=== PATIENT | female | born 1945 | race Caucasian/White ===

== ENCOUNTER 2017-05-21 05:41 | Inpatient (IN) | payer MEDICARE, MEDICAID ==
[~2017-05-21] VITALS: Ht 157.5 cm; Wt 138.3 kg
[2017-05-21] VITALS (20 sets, daily range): BP systolic 91–179; BP diastolic 32–109; PULSE 52–77; RESP 16–33; O2SAT 90–100
[~2017-05-21 05:41] MED LIST: AMIO400T4 PO; Albuterol 2.5 mg/3 mL Inhalation Solution NEB ONE; Albuterol-Ipratropium 3 mL Inhalation Solution ONE; CEPH-512 PO; DIGO250T72 PO; FAMO20TA4 PO; FURO-128 PO; GABA-502 PO; HYDR200T5 PO; LEFL20TA18 PO; LISI-567 PO; LOVA20TA PO; METF500T4 PO; METO-369 PO; NYST1POW23 MC; ONDA8TAB10 PO; PRE20 PO; SULF1TAB7 PO; WARF2.5T82 PO; ZLP5T PO
[2017-05-21] MEDS ORDERED: Furosemide 10 mg/mL 10 mL Inj IVPUSH ONE ×2 (05:50→06:00)
--- NOTE | 2017-05-21 05:54 | ED.REPORT ---
HPI-Dyspnea / Wheezing Date of Service May 21, 2017 ED Provider: Wyatt Monique MD Patient is a 72 year old female with a hx of HTN, DM, PE, and Afib on Warfarin who presents to the ED via EMS complaining of SOB onset 0400 this morning. In the field the pt had a O2 sat of 50% which increased to the upper 90's with high flow O2. She had an albuterol treatment en route. Patient really is not able to provide any meaningful history because of her respiratory distress Per records, she is not on blood thinners. Nursing Notes Stated Complaint: RESPIRATORY DISTRESS Chief Complaint: Respiratory Distress Nursing Notes Reviewed: Yes Allergies: Coded Allergies: meperidine (Verified Allergy, Severe, Nausea,Vomiting, 05/21/17) swelling at administration site as well as nausea/vomiting morphine (Verified Adverse Reaction, Intermediate, Hallucinations, 05/21/17 ) MAKES HER FEEL "WIRED" Scheduled Amiodarone (Amiodarone) 400 Mg Tablet 400 MG PO TID Cephalexin (Keflex) 500 Mg Capsule 500 MG PO QID Digoxin (Digoxin) 250 Mcg Tablet 250 MCG PO DAILY Famotidine (Famotidine) 20 Mg Tablet 30 MG PO DAILY Furosemide (Lasix) 40 Mg Tablet 40 MG PO BID Gabapentin (Gabapentin) 300 Mg Capsule 600 MG PO TID Hydroxychloroquine Sulfate (Hydroxychloroquine Sulfate) 200 Mg Tablet 400 MG PO DAILY Lisinopril (Lisinopril) 20 Mg Tablet 20 MG PO BID Lovastatin (Lovastatin) 20 Mg Tablet 20 MG PO QPM Metformin (Metformin) 500 Mg Tablet 500 MG PO DAILYWM Metoprolol Succinate ER (Metoprolol Succinate ER) 50 Mg Tab.er.24h 50 MG PO BID Ondansetron ODT (Ondansetron ODT) 8 Mg Tab.rapdis 8 MG PO QID Prednisone (PredniSONE) 20 Mg Tablet 20 MG PO DAILY Sulfamethoxazole/Trimeth 800-160 mg (Bactrim DS) 1 Each Tablet 1 TABLET PO BID Warfarin Sodium (Warfarin Sodium) 2.5 Mg Tablet 2.5 MG PO STTS Scheduled PRN Zolpidem (Ambien) 5 Mg Tablet 5 MG PO HS PRN PRN For Insomnia Miscellaneous Medications Leflunomide (Leflunomide) 20 Mg Tablet 20 MG PO Nystatin (Nystatin) 1 Each Powder.ea. 1 EACH [facility] General Time Seen by : 05:54 Chief Complaint Shortness of breath Hx Obtained From: Patient, EMS Arrived By: Ambulance Sudden in Onset?: Yes Onset Occurred: 1 - 4 hours ago Symptom Duration: Since onset Past Medical History Past Medical History 1. Atrial fibrillation on Warfarin 2. Macrocytic anemia with history of GI bleed, severe bleed, secondary to ulcers and on warfarin. 3. Bullous pemphigoid with history left lower extremity ulcer-healed, [facility]. 4. Rheumatoid arthritis, on Enbrel, last dose 1 month ago (managed by Dr. Valencia but patient would like to be referred to teacher aide). 5. History of recurrent left lower extremity cellulitis. 6. Depression, situational, after her 3 years ago- but reports she has gone to Grief Support group and got a chihuaha (Kimberly) so does not need medication treatment. 7. Diabetes mellitus, type 2, with neuropathy. 8. Hyperlipidemia. 9. Hypertension. 10. Heart murmur secondary to aortic sclerosis (reports Echo done in January at [place] but unable to obtain report) 11. Suspected obstructive sleep apnea( scheduled at [facility]) 12. Morbid obesity with BMI 56.6. 13. Acute renal failure due to dehydration, ARB, and Bactrim 14. Sclerotic lesion of the left humerus (deferred to outpatient) 15. PE February 2014 16. Endometriosis 17. RA on enbrel Hospitalizations: [facility] from February 11 through February 23. She presented with rapid atrial fibrillation and bronchitis. During that hospitalization she was found to have a rectus hematoma with significant anemia (requiring 5 units of packed red cell transfusion), delirium, prerenal azotemia, hyperkalemia and also CO2 narcosis (thought due to obstructive sleep apnea). She was discharged to [facility] on digoxin for her atrial fibrillation. SVH from [facility] from March 06- for acute renal failure due to prescribed Bactrim DS on February 28, and was continued on her ARB, and dehydrated. She was found to be Digoxin toxic at 3.5. She was discharged home with followup with PCP on March 13. Reports: Diabetes mellitus, Hyperlipidemia, Hypertension Reports: Thyroid disease Past Surgical History 1. Hysterectomy 2. Bladder repair 3. Bilateral knee arthroscopy Reports: Knee replacement Family History noncontributory Smoking History Never Smoker Social History Alcohol Use: Denies alcohol use Drug Use: Denies drug use Review of Systems Unable to Obtain ROS Patient condition (shortness of breath ) Physical Exam Initial Vital Signs Vital Signs (First) Date Time Temp Pulse Resp B/P Pulse Ox O2 Delivery O2 Flow Rate FiO2 05/21/17 05:43 38.2 77 27 135/78 94 BiPAP 05/21/17 05:49 10 05/21/17 06:05 60 Initial VS: Reviewed, Vital signs abnormal Head / Eyes: Atraumatic, Normocephalic Abdomen / GI: Soft, Non-tender Skin: Warm, Dry Neurologic: Alert, Oriented, Nonfocal Alertness: Positive: Somnolent Appearance / Presentation: Positive: Obese Neck: Supple Resp Distress / Stridor: Positive: Resp distress severe Diffuse wheezing throughout On Bipap Responds yes and no to questions Cardiovascular: Heart rate NL Distant heart tones Lower Extremity / Pelvis / MS: No deformity Profound peripheral edema below the knees with chronic venous stasis changes Interpretation & Diagnostics ECHO on 03/11/14: EF of 75-80% No focal wall motion abnormalities No significant valvular disease Lab Results Interpretation Result Diagram: 05/21/17 0515 05/21/17 0737 Test 05/21/17 05:15 05/21/17 06:55 05/21/17 07:08 White Blood Count 25.1th/mm3 (3.8-10.1) Red Blood Count 4.63mil/mm3 (3.90-5.20) Hemoglobin 13.6g/dL (12.0-15.6) Hematocrit 43.9% (35.0-46.0) Mean Corpuscular Volume 94.8fL (81-100) Mean Corpuscular Hemoglobin 29.4pg (27.0-35.0) Mean Corpuscular Hemoglobin Concent 31.0% (32.0-37.0) Red Cell Distribution Width 13.8% (12.3-15.4) Platelet Count 323bil/L (150-400) Neutrophils (%) (Auto) 73.5% (40-74) Lymphocytes (%) (Auto) 17.6% (14-46) Monocytes (%) (Auto) 7.3% (4-12) Eosinophils (%) (Auto) 1.0% (0-5) Basophils (%) (Auto) 0.2% (0-3) Sodium Level 142mEq/L (134-144) Chloride Level 98mEq/L (97-108) Carbon Dioxide Level 25mmol/L (18-29) Blood Urea Nitrogen 56mg/dL (8-27) Creatinine 2.48mg/dL (0.57-1.00) Estimat Glomerular Filtration Rate 27mL/min (>59) Glucose Level 189mg/dL (60-99) Calcium Level 9.2mg/dL (8.5-10.1) Total Bilirubin 0.3mg/dL (0.0-1.2) Aspartate Amino Transf (AST/SGOT) 18U/L (0-50) Alanine Aminotransferase (ALT/SGPT) 19U/L (0-32) Alkaline Phosphatase 76U/L (25-165) Pro-B-Type Natriuretic Peptide 602.6pg/mL (0-301) Total Protein 7.6g/dL (6.4-8.4) Albumin 4.0g/dL (3.4-5.0) Procalcitonin 0.22ng/mL (0.00-0.08) Digoxin Level 0.3nG/mL (0.9-2.0) Urine Legionella pneumophilia Ag Negative (Negative) Urine Color Yellow (YELLOW) Urine Appearance Clear (CLEAR,HAZY) Urine pH 6.0 (5.0-8.0) Urine Specific [place] 1.013 (1.003-1.035) Urine Protein Negativemg/dL (NEG,TRACE) Urine Glucose (UA) Negativemg/dL (NEGATIVE) Urine Ketones Negativemg/dL (NEGATIVE) Urine Occult Blood Trace (NEGATIVE) Urine Nitrite Negative (NEGATIVE) Urine Bilirubin Negative (NEGATIVE) Urine Urobilinogen Normalmg/dL (NORMAL) Urine Leukocyte Esterase Negative (NEGATIVE) Urine RBC 0-2/hpf (0-2) Urine WBC 0-5/hpf (0-5) Urine Epithelial Cells Few/hpf (NONE-MOD) Urine Crystals None seen (NONE SEEN) Urine Bacteria Few/hpf (NONE-FEW) Urine Hyaline Casts None/lpf (NONE) Urine Granular Casts None seen (NONE SEEN) Urine Waxy Casts None seen (NONE SEEN) Urine Red Blood Cell Casts None seen (NONE SEEN) Urine White Blood Cell Casts None seen (NONE SEEN) Urine Mucus None seen (None Seen) Urine Trichomonas None seen (NONE SEEN) Urine Yeast None (NONE SEEN) Urine Culture Reflexed Not indicated ECG Interpretation ECG Interpretation: Sinus rate 75 Nonspecific intraventricular conduction delay Repol abnormality, severe global ischemia Time: 05:50 Interpreted by: ED physician ABG Interpretation ABG Interpretation: Arterial pH 7.214 pCO2 84 pO2 188.0 cHCO3- 33.7 cBase 4.7 Exam Performed by: [facility] Exam Interpreted by: ED physician ABG Interpretation: Arterial pH 7.286 pCO2 68 pO2 68.2 cHCO3- 31.5 cBase 3.6 Exam Performed by: [facility] Exam Interpreted by: ED physician X-Ray Chest Interpretation Chest Xray Interpretation: diffuse pulmonary infiltrates consistent with CHF View: Portable, 1 view Interpretation / Wet Read by: Wet read ED physician Re-Eval/Medical Decision Re-Evaluation/Progress #1: Time of Eval: 06:04 Re-Evaluation/Progress Note: Although blood gas appears severely abnormal, will hold off on intubation as pt seems to be clinically improving with bipap. Re-Evaluation/Progress #2: Time of Eval: 06:33 Re-Evaluation/Progress Note: Rechecked pt who is still breathless and unable to provide a meaningful history. Discussed plan for admission. Patient understands and agrees with plan. All questions addressed at this time. Re-Evaluation/Progress #3: Time of Eval: 06:56 Re-Evaluation/Progress Note: Discussed pt's case with family. Consultation #1: Referral / Consult Name: Harleen Giles MD Consulted With: Hospitalist Call Returned at: 07:04 Applications Processor: Will see patient, Agrees with eval, Agrees with plan, Accepts admit Note: Discussed pt's case. Accepts admit. Consult cardiology Consultation #2: Referral / Consult Name: Aramis Castro MD Consulted With: Cardiology Call Returned at: 07:12 Note: Discussed pt's case. Agrees to consult. Counseled Regarding: Diagnosis, Lab results, Need for admission Discharge & Departure Impression: Primary Impression: Signs and symptoms of severe respiratory distress Additional Impression: Acute CHF Congestive heart failure type: unspecified congestive heart failure type Qualified Code: I50.9 - Heart failure, unspecified Disposition: ADMITTED TO HOSPITAL Discharge Condition All VS Reviewed: Yes Condition: Critical Crit Care Except Billable Proc Time Spent: 30-74 minutes Services Performed: Patient management by me, Time spent at bedside, Reviewing test results, Reviewing imaging, Discussing patient care, Documentation in record Critical Care Notes: 46 minutes Scribe Attestation Portions of this note were transcribed by Michael Parmar. I, Dr. Monique personally performed the history, physical exam and medical decision-making; I reviewed and confirmed the accuracy of the information in the transcribed note. Signed by: Jorge Petersen, 05/21/17 Wyatt Monique MD May 21, 2017 05:54 MICHAEL PARMAR May 21, 2017 06:01
--- NOTE | 2017-05-21 05:59 | ABG ---
DateTimeAnalyzed 05:57:06 -_ pH ____7.214 - 7.350 7.450 pCO2 ___83.5__ -mmHg 35.0 45.0 pO2 188 -mmHg 80.0 100 HCO3- ___33.7__ -mmol/L 22.0 26.0 ABE ____4.7__ -mmol/L -2.0 2.0 tHb ___12.9__ -g/dL 12.0 18.0 O2Hb ___97.4__ -% COHb ____0.8__ -% 1.5 MetHb ____0.0__ -% 0.4 1.5 sO2 ___98.1__ -% 95.0 AaDpO2 __433.8__ -mmHg FIO2 __100.0__ -% CPAP ___18.0__ -cmH2O PEEP ____8.0__ -cmH2O Set_RR 14 -b/min Drawn By MK - Date/Time Notified____ 05:59:00 -_ Spontaneous_RR 30 -b/min Oxygen Device 1 ____BIPAP - Notified By MK - Notified Whom Dr Becker - K+ ____5.1__ -mmol/L 3.5 5.0 Calvin test _Positive -
[2017-05-21 06:01] LABS: BASOPHILS % (AUTO) 0.2 % (0-3); MONOCYTES % (AUTO) 7.3 % (4-12); Mean Corpuscular Hemoglobin 29.4 pg (27.0-35.0); Mean Corpuscular Volume 94.8 fL (81-100); NEUTROPHILS % (AUTO) 73.5 % (40-74); Platelet Count 323 bil/L (150-400)
[2017-05-21] MEDS ORDERED: Nitroglycerin 2% 1 Gm Ointment TOPICAL ONE (06:02)
[2017-05-21] MEDS ORDERED: Nitroglycerin 2% 1 Gm Ointment TOPICAL SCH (06:05)
[2017-05-21] MEDS ORDERED: 0.9% Sodium Chloride 50 ML ONE (06:09)
[2017-05-21 06:23] LABS: INR 2.23 ratio
[2017-05-21 06:25] LABS: TROPONIN T 0.017 ug/L (0.0-0.011)
[2017-05-21 07:00] LABS: Magnesium 2.6 mg/dL (1.6-2.6)
--- NOTE | 2017-05-21 07:13 | ABG ---
DateTimeAnalyzed 07:05:00 -_ pH ____7.286 - 7.350 7.450 pCO2 ___68.2__ -mmHg 35.0 45.0 pO2 ___68.2__ -mmHg 80.0 100 HCO3- ___31.5__ -mmol/L 22.0 26.0 ABE ____3.6__ -mmol/L -2.0 2.0 tHb ___12.0__ -g/dL 12.0 18.0 O2Hb ___90.2__ -% COHb ____1.0__ -% 1.5 MetHb ____1.3__ -% 0.4 1.5 sO2 ___92.4__ -% 95.0 FIO2 ___60.0__ -% CPAP ___18.0__ -cmH2O PEEP ____5.0__ -cmH2O Set_RR ___14.0__ -b/min Drawn By JJ - Date/Time Notified____ 07:12:00 -_ Spontaneous_RR ___30.0__ -b/min Oxygen Device 1 ____BIPAP - Notified By JJ - Notified Whom DR KATHLEEN - B 755 -mmHg tO2 ___15.2__ -Vol% Calvin test _Positive -
[2017-05-21] MEDS ORDERED: levoFLOXacin Inj 750 MG in IV Premix 1 EACH IV ONE (07:25)
[2017-05-21] MEDS ORDERED: Piperacillin-Tazo 3.375 Gm Inj 3.375 GM in Dextrose 5% Minibag Plus 50 ML IV ONE (07:25)
[2017-05-21] MEDS ORDERED: Vancomycin Dose per Pharmacist XX ONE (07:25)
[2017-05-21 07:29] LABS: APPEARANCE,URINE CLEAR (CLEAR,HAZY); COLOR,URINE YELLOW (YELLOW); OCCULT BLOOD,URINE TRACE (NEGATIVE); UROBILINOGEN,URINE NORMAL (NORMAL)
[2017-05-21] MEDS ORDERED: Ondansetron 2 mg/mL 2 mL Inj IVPUSH PRN ×2 (07:45)
[2017-05-21] MEDS ORDERED: Senna-Docusate 8.6-50 mg Tablet PO PRN ×2 (07:45)
[2017-05-21] MEDS ORDERED: Alum-Mag Hydrox-Simeth 30 mL Suspension PO PRN ×2 (07:45)
[2017-05-21] MEDS: Nitroglycerin 2% 1 Gm Ointment TOPICAL SCH ×2 (07:45→11:45)
[2017-05-21] MEDS ORDERED: Polyethylene Glycol (PEG) 17 Gm Powder PO PRN ×2 (07:45)
--- NOTE | 2017-05-21 08:19 | PCM.HPMED ---
Subjective Date of Service May 21, 2017 Primary Provider: Admitting Physician: Harelen Giles MD Primary Care Physician: Nopradha Attending Physician: Harleen Giles MD Admit Status: From the Emergency Department, Full Admit, Admit to Yellow Team, Critical Care Chief Complaint: Acute respiratory distress History of Present Illness: This 72-year-old female who presents with acute respiratory distress. Difficult to get a history from her because she is in such acute respiratory distress. She denies any chest pain. She does note that she woke up and was feeling short of breath. EMS was called and patient was found to have an O2 sat of 50% which was then increased into the upper 90s with high flow O2. Patient's initial blood gas was pH 7.214 PCO2 84 PO2 188 bicarbonate 33.7 this x -ray showed pulmonary edema. Neck acid is 2.6. Pro-calcitonin 0.22. She did have an echocardiogram in 03/11/2014 with an EF of 75-80% no focal wall motion abnormalities were seen at that time and no significant valvular disease was seen. EKG was crushed sinus at a heart rate of 75 every RS was 120 QTC 474 with nonspecific interventricular conduction delay and there was also significant amount of artifact noted. And also has a history of recent acute renal failure back in February she was treated at [facility] and it was thought to be secondary to Bactrim therapy along with dehydration. Of note patient is on warfarin for atrial fibrillation and history of PE. Review of Systems: Patient denies any fevers chills. Denies cough. Denies any nausea or vomiting. All other review of systems are reviewed and are negative except for as in history of present illness. Be aware patient is difficult historian because of her significant respiratory distress. Allergies Coded Allergies: meperidine (Verified Allergy, Severe, Nausea,Vomiting, 05/21/17) swelling at administration site as well as nausea/vomiting morphine (Verified Adverse Reaction, Intermediate, Hallucinations, 05/21/17 ) MAKES HER FEEL "WIRED" Home Medications Amiodarone (Amiodarone) 400 Mg Tablet 400 MG PO TID Cephalexin (Keflex) 500 Mg Capsule 500 MG PO QID Digoxin (Digoxin) 250 Mcg Tablet 250 MCG PO DAILY Famotidine (Famotidine) 20 Mg Tablet 30 MG PO DAILY Furosemide (Lasix) 40 Mg Tablet 40 MG PO BID Gabapentin (Gabapentin) 300 Mg Capsule 600 MG PO TID Hydroxychloroquine Sulfate (Hydroxychloroquine Sulfate) 200 Mg Tablet 400 MG PO DAILY Lisinopril (Lisinopril) 20 Mg Tablet 20 MG PO BID Lovastatin (Lovastatin) 20 Mg Tablet 20 MG PO QPM Metformin (Metformin) 500 Mg Tablet 500 MG PO DAILYWM Metoprolol Succinate ER (Metoprolol Succinate ER) 50 Mg Tab.er.24h 50 MG PO BID Ondansetron ODT (Ondansetron ODT) 8 Mg Tab.rapdis 8 MG PO QID Prednisone (PredniSONE) 20 Mg Tablet 20 MG PO DAILY Sulfamethoxazole/Trimeth 800-160 mg (Bactrim DS) 1 Each Tablet 1 TABLET PO BID Warfarin Sodium (Warfarin Sodium) 2.5 Mg Tablet 2.5 MG PO STTS Scheduled PRN Zolpidem (Ambien) 5 Mg Tablet 5 MG PO HS PRN PRN For Insomnia Miscellaneous Medications Leflunomide (Leflunomide) 20 Mg Tablet 20 MG PO Nystatin (Nystatin) 1 Each Powder.ea. 1 EACH [facility] Past Medical History 1. Atrial fibrillation on Warfarin 2. Macrocytic anemia with history of GI bleed, severe bleed, secondary to ulcers and on warfarin. 3. Bullous pemphigoid with history left lower extremity ulcer-healed, [facility]. 4. Rheumatoid arthritis, on Enbrel, last dose 1 month ago (managed by Dr. Valencia but patient would like to be referred to bsa officer). 5. History of recurrent left lower extremity cellulitis. 6. Depression, situational, after her 3 years ago- but reports she has gone to Grief Support group and got a chihuaha (Kimberly) so does not need medication treatment. 7. Diabetes mellitus, type 2, with neuropathy. 8. Hyperlipidemia. 9. Hypertension. 10. Heart murmur secondary to aortic sclerosis (reports Echo done in January at [place] but unable to obtain report) 11. Suspected obstructive sleep apnea( scheduled at [facility]) 12. Morbid obesity with BMI 56.6. 13. Acute renal failure due to dehydration, ARB, and Bactrim 14. Sclerotic lesion of the left humerus (deferred to outpatient) 15. PE February 2014 16. Endometriosis 17. RA on enbrel Hospitalizations: [facility] from February 11 through February 23. She presented with rapid atrial fibrillation and bronchitis. During that hospitalization she was found to have a rectus hematoma with significant anemia (requiring 5 units of packed red cell transfusion), delirium, prerenal azotemia, hyperkalemia and also CO2 narcosis (thought due to obstructive sleep apnea). She was discharged to [facility] on digoxin for her atrial fibrillation. SVH from [facility] from March 06- for acute renal failure due to prescribed Bactrim DS on February 28, and was continued on her ARB, and dehydrated. She was found to be Digoxin toxic at 3.5. She was discharged home with followup with PCP on March 13. Reports: Diabetes mellitus, Hyperlipidemia, Hypertension Reports: Thyroid disease Past Surgical History 1. Hysterectomy 2. Bladder repair 3. Bilateral knee arthroscopy Reports: Knee replacement Family History Denies family history of coronary artery disease Social History Hx Alcohol Use: No Hx Substance Use: No Hx Tobacco Use: No Smoking Status: Never Smoker Living Arrangement: with Family Exam Vital Signs Vital Sign - Last Date Time Temp Pulse Resp B/P Pulse Ox O2 Delivery O2 Flow Rate FiO2 05/21/17 08:01 56 16 119/35 96 BiPAP 05/21/17 07:05 38.6 05/21/17 06:25 9 05/21/17 06:07 60 Exam Constitutional: Morbidly obese female who is in respiratory distress Head: Normocephalic atraumatic Chest: Crackles posterior bases Cor: Regular rate and rhythm S1-S2 Abdomen: Soft nontender bowel sounds present Extremities: Bilateral stasis dermatitis of her lower extremities Psych: Appears to have normal mood and affect Skin: Patient does have some superficial ulcerated areas of her lower extremities bilaterally Neuro: She is alert and oriented 3, moves all extremities equally Lab and Diagnostics Labs Laboratory Tests 72 Hours Test 05/21/17 05:15 05/21/17 07:08 05/21/17 07:37 05/21/17 08:35 White Blood Count 25.1th/mm3 (3.8-10.1) Red Blood Count 4.63mil/mm3 (3.90-5.20) Hemoglobin 13.6g/dL (12.0-15.6) Hematocrit 43.9% (35.0-46.0) Mean Corpuscular Volume 94.8fL (81-100) Mean Corpuscular Hemoglobin 29.4pg (27.0-35.0) Mean Corpuscular Hemoglobin Concent 31.0% (32.0-37.0) Red Cell Distribution Width 13.8% (12.3-15.4) Platelet Count 323bil/L (150-400) Neutrophils (%) (Auto) 73.5% (40-74) Lymphocytes (%) (Auto) 17.6% (14-46) Monocytes (%) (Auto) 7.3% (4-12) Eosinophils (%) (Auto) 1.0% (0-5) Basophils (%) (Auto) 0.2% (0-3) Prothrombin Time 24.3sec (8.1-12.5) Prothromb Time International Ratio 2.23ratio Sodium Level 142mEq/L (134-144) Potassium Level 5.7mEq/L (3.5-5.2) 5.7mEq/L (3.5-5.2) Chloride Level 98mEq/L (97-108) Carbon Dioxide Level 25mmol/L (18-29) Blood Urea Nitrogen 56mg/dL (8-27) Creatinine 2.48mg/dL (0.57-1.00) Estimat Glomerular Filtration Rate 27mL/min (>59) Glucose Level 189mg/dL (60-99) Lactic Acid Level 2.6mmol/L (0.4-2.0) Calcium Level 9.2mg/dL (8.5-10.1) Magnesium Level 2.6mg/dL (1.6-2.6) Total Bilirubin 0.3mg/dL (0.0-1.2) Aspartate Amino Transf (AST/SGOT) 18U/L (0-50) Alanine Aminotransferase (ALT/SGPT) 19U/L (0-32) Alkaline Phosphatase 76U/L (25-165) Troponin T 0.017ug/L (0.0-0.011) 0.080ug/L (0.0-0.011) Pro-B-Type Natriuretic Peptide 602.6pg/mL (0-301) Total Protein 7.6g/dL (6.4-8.4) Albumin 4.0g/dL (3.4-5.0) Procalcitonin 0.22ng/mL (0.00-0.08) Digoxin Level 0.3nG/mL (0.9-2.0) Urine Color Yellow (YELLOW) Urine Appearance Clear (CLEAR,HAZY) Urine pH 6.0 (5.0-8.0) Urine Specific [place] 1.013 (1.003-1.035) Urine Protein Negativemg/dL (NEG,TRACE) Urine Glucose (UA) Negativemg/dL (NEGATIVE) Urine Ketones Negativemg/dL (NEGATIVE) Urine Occult Blood Trace (NEGATIVE) Urine Nitrite Negative (NEGATIVE) Urine Bilirubin Negative (NEGATIVE) Urine Urobilinogen Normalmg/dL (NORMAL) Urine Leukocyte Esterase Negative (NEGATIVE) Urine RBC 0-2/hpf (0-2) Urine WBC 0-5/hpf (0-5) Urine Epithelial Cells Few/hpf (NONE-MOD) Urine Crystals None seen (NONE SEEN) Urine Bacteria Few/hpf (NONE-FEW) Urine Hyaline Casts None/lpf (NONE) Urine Granular Casts None seen (NONE SEEN) Urine Waxy Casts None seen (NONE SEEN) Urine Red Blood Cell Casts None seen (NONE SEEN) Urine White Blood Cell Casts None seen (NONE SEEN) Urine Mucus None seen (None Seen) Urine Trichomonas None seen (NONE SEEN) Urine Yeast None (NONE SEEN) Urine Culture Reflexed Not indicated Result Diagram: 05/21/1751405/21/17514 X-Rays, CTs and MRIs PROCEDURE: X-RAY CHEST ONE VIEW, PORTABLE ([id number]) INDICATIONS: Resp distress TECHNIQUE: One view of the chest was acquired. COMPARISON: [facility], , CHEST 2VW, 01/09/2015, 12:06. [facility], , XR CHEST 2VW, 07/13/2016, 14:04. [facility], , CHEST 1VW (PORTABLE), 07/10/2014, 17:01. FINDINGS: Surgical changes and devices: None. Lungs and pleura: There are bilateral interstitial and airspace infiltrates consistent with pneumonia or pulmonary edema. No pleural effusions or pneumothorax. Mediastinum: Mediastinal contours appear normal. Heart size is normal. Aortic calcification consistent with atherosclerosis. Bones and chest wall: No suspicious bony lesions. Overlying soft tissues appear unremarkable. IMPRESSION: Bilateral pneumonia or pulmonary edema. Dictated by: Luma Paiz M.D. on 05/21/2017 at 8:46 Approved by: Luma Paiz M.D. on 05/21/2017 at 8:48 12-lead ECG See history of present illness Assessment & Plan # Acute respiratory failure with hypoxia and hypercapnia, present on admission -Pulmonary consultation obtained -Cardiology consult obtained also -Check echocardiogram -May be related to flash pulmonary edema -Check serial troponins -Recheck ABG and may need intubation as opposed to BiPAP -Obtained respiratory PCR and sputum studies -Monitor pro-calcitonin levels -IV antibiotics per Dr. [place] # Lactic acidosis, acute, present on admission -Monitor lactate levels every 2 hours 3 until normalized #-Acute renal failure, present on admission -Go ahead and give IV fluid hydration and avoid nephrotoxic agents -We will recheck labs -Consider nephrology consultation if does not improve # Rheumatoid arthritis, chronic, present on admission -We will need to verify her medication list -Most of her medications related to this but will need to -Since she appears to be on chronic steroids also will need to give her IV hydrocortisone stress dose supplementation # Atrial fibrillation, chronic, present on admission -Is on telemetry and monitor -Patient has been on warfarin therapy orally but we will go ahead and give IV heparin drip # DVT prophylaxis -Patient is on therapeutic anticoagulation # CODE STATUS -Patient is full code VTE Prophylaxis: Theraputic Anticoag with Warfarin Resuscitation Status: CPR: Attempt Resuscitation Time spent 60 minutes Harleen Giles MD May 21, 2017 08:19
--- NOTE | 2017-05-21 08:29 | ABG ---
DateTimeAnalyzed 07:05:00 -_ pH ____7.286 - 7.350 7.450 pCO2 ___68.2__ -mmHg 35.0 45.0 pO2 ___68.2__ -mmHg 80.0 100 HCO3- ___31.5__ -mmol/L 22.0 26.0 ABE ____3.6__ -mmol/L -2.0 2.0 tHb ___12.0__ -g/dL 12.0 18.0 O2Hb ___90.2__ -% COHb ____1.0__ -% 1.5 MetHb ____1.3__ -% 0.4 1.5 sO2 ___92.4__ -% 95.0 FIO2 ___60.0__ -% CPAP ___18.0__ -cmH2O PEEP ____8.0__ -cmH2O Set_RR ___14.0__ -b/min Drawn By JJ - Date/Time Notified____ 07:12:00 -_ Spontaneous_RR ___30.0__ -b/min Oxygen Device 1 ____BIPAP - Notified By JJ - Notified Whom DR KATHLEEN - B 755 -mmHg tO2 ___15.2__ -Vol% Calvin test _Positive -
[2017-05-21] MEDS ORDERED: Vancomycin Inj 2,000 MG in 0.9% Sodium Chloride 500 ML IV ONE (08:30)
[2017-05-21] MEDS ORDERED: predniSONE 20 mg Tablet PO SCH (08:30)
[2017-05-21] MEDS ORDERED: MeTOProlol XL 50 mg ER24 Tablet PO SCH (08:30)
[2017-05-21] MEDS ORDERED: Furosemide 10 mg/mL 4 mL Inj IVPUSH SCH (08:30)
[2017-05-21] MEDS: Sodium Chloride LOK Flush 10 mL Syringe IVFLUSH SCH ×2 (08:30→17:15)
[2017-05-21] MEDS ORDERED: Hydroxychloroqine 200 mg Tablet PO SCH (08:30)
[2017-05-21] MEDS ORDERED: AMIODARONE 400 MG PO SCH (08:30)
--- NOTE | 2017-05-21 08:50 | DRSVH ---
PROCEDURE: X-RAY CHEST ONE VIEW, PORTABLE ([id number]) INDICATIONS: Resp distress TECHNIQUE: One view of the chest was acquired. COMPARISON: [facility], CR, CHEST 2VW, 01/09/2015, 12:06. [facility], CR, XR CHEST 2VW, 07/13/2016, 14:04. [facility], CR, CHEST 1VW (PORTABLE), 07/10/2014, 17:01 . FINDINGS: Surgical changes and devices: None. Lungs and pleura: There are bilateral interstitial and airspace infiltrates consistent with pneumoni a or pulmonary edema. No pleural effusions or pneumothorax. Mediastinum: Mediastinal contours appear normal. Heart size is normal. Aortic calcification consist ent with atherosclerosis. Bones and chest wall: No suspicious bony lesions. Overlying soft tissues appear unremarkable. IMPRESSION: Bilateral pneumonia or pulmonary edema. Dictated by: Luma Paiz M.D. on 05/21/2017 at 8:46 Approved by: Luma Paiz M.D. on 05/21/2017 at 8:48
[2017-05-21] MEDS ORDERED: Norepineph 8,000 mCg/250 mL NS 8,000 MCG in IV Premix 1 EACH IV SCH (08:56)
[2017-05-21] MEDS ORDERED: Norepinephrine 8,000 mCg/250 mL NS Premix IV ONE (08:59)
[2017-05-21] MEDS ORDERED: 0.9% Sodium Chloride 1,000 ML IV SCH (09:00)
[2017-05-21] MEDS ORDERED: MethylprednisoLONE Sodium Succinate 62.5 mg/mL 2 mL Inj IVPUSH ONE (09:05)
[2017-05-21 09:10] LABS: INR 2.33 ratio
[2017-05-21] MEDS ORDERED: Lidocaine PF 2% 10 mL Inj ONE (09:33)
[2017-05-21] MEDS ORDERED: Lidocaine Topical 2% 30 mL Jelly ONE (09:33)
[2017-05-21] MEDS ORDERED: fentaNYL 2,500 mCg/250 mL 2,500 MCG in IV Premix 1 EACH IV PRN (09:33)
[2017-05-21] MEDS ORDERED: fentaNYL-PF 50 mCg/mL 2 mL Inj IVPUSH PRN (09:35)
[2017-05-21 09:40] LABS: Magnesium 2.4 mg/dL (1.6-2.6)
[2017-05-21] MEDS ORDERED: Rocuronium 10 mg/mL 5 mL Inj IVPUSH ONE (10:00)
[2017-05-21] MEDS ORDERED: fentaNYL 2,500 mCg/250 mL Premix IV ONE (10:11)
[2017-05-21] MEDS ORDERED: Propofol 10,000 mCg/mL 100 mL Inj ONE (10:12)
[2017-05-21] MEDS: Nystatin 100,000 Unit/Gm 15 Gm Powder TOPICAL SCH ×2 (10:45→23:01)
--- NOTE | 2017-05-21 10:57 | DRSVH ---
PROCEDURE: X-RAY CHEST ONE VIEW, PORTABLE ([id number]) INDICATIONS: POST INTUBATION TECHNIQUE: One view of the chest was acquired. COMPARISON: None. FINDINGS: Surgical changes and devices: Endotracheal tube in normal position, mid clavicular head level.. Lungs and pleura: No pleural effusions or pneumothorax. Lungs are edematous bilaterally, and there is a pattern of bibasilar more dense alveolar consolidation that may represent bilateral pneumonia or aspiration. However, the inspiratory volume is relatively probably reduced.. Mediastinum: Mediastinal contours appear normal. Heart size is normal. Bones and chest wall: No suspicious bony lesions. Overlying soft tissues appear unremarkable. IMPRESSION: Endotracheal tube in normal position. Bibasilar atelectasis versus bilateral pneumonia o r aspiration. Dictated by: Alin Arrieta M.D. on 05/21/2017 at 10:51 Approved by: Alin Arrieta M.D. on 05/21/2017 at 10:55
[2017-05-21] MEDS: 0.9% Sodium Chloride 1,000 ML IV SCH ×2 (11:07→23:04)
--- NOTE | 2017-05-21 11:16 | CONS ---
[address] [address] CONSULTATION REPORT PATIENT: KIRSTY WHITLEY : 1945 MR#: [id number] ADMIT: 05/21/2017 JOB ID: [id number] DATE OF SERVICE: 05/21/2017 CARDIOLOGY CONSULTATION: It is a critical care consult. Hospitalist team asked me to see this patient regarding respiratory failure, she got intubated in my presence for respiratory distress. I obtained information from the medical chart. I reviewed information from her pediatric oncology nurse, Dr. Avery, as well. CHIEF COMPLAINT: Acute respiratory distress. At present, the patient is intubated and unable to provide detailed history. PRESENT HISTORY: This 72-year-old female, who has morbid obesity with BMI 56.6, history of atrial fibrillation status post DC cardioversion by Dr. Avery in March 2015, on amiodarone since then, history of heart failure got admitted last in [place], moderate aortic stenosis with preserved LV systolic function, history of rheumatoid arthritis, on Enbrel, last dose one month ago, history of bullous pemphigoid, history of recurrent left lower extremity cellulitis, type 2 diabetes mellitus, essential hypertension, hyperlipidemia, depression, possible sleep apnea, history of acute renal failure, history of pulmonary embolism in February 2014, negative DVT in the past, history of endometriosis developed acute respiratory distress this morning. She woke up with respiratory distress. EMS found her hypoxic. Her oxygen saturation was 50%. Her initial blood gas pH 7.24, pCO2 84, pO2 188, bicarbonate 33.7, as per the chart. On x-ray there was concern for pulmonary edema or bilateral pneumonia. The patient got admitted to the hospital. She developed worsening shortness of breath and got intubated. At present, she is intubated. No family members available. She is on chronic warfarin therapy. PAST MEDICAL HISTORY: 1. History of paroxysmal atrial fibrillation status post DC cardioversion in March [address] Avery and started her on amiodarone. 2. History of heart failure. 3. Moderate aortic stenosis. 4. Preserved LV systolic function. 5. Rheumatoid arthritis. 6. Bullous pemphigoid. 7. History of recurrent left lower extremity cellulitis. 8. Morbid obesity with BMI 56.6. 9. Type 2 diabetes mellitus. 10. Essential hypertension. 11. Hyperlipidemia. 12. History of acute renal failure. 13. Pulmonary embolism in February 2014. 14. Sclerotic lesion of the left humerus. 15. Other problems as stated above. PAST SURGICAL HISTORY: As stated above. ALLERGIES: MEPERIDINE and MORPHINE. MEDICATION AT HOME: 1. Amiodarone as per Dr. Avery's note 200 mg daily. 2. Digoxin 250 mcg daily. 3. Lasix 40 mg b.i.d. 4. Warfarin 2.5 mg p.o. STTS. 5. Bactrim 1 tablet b.i.d. 6. Prednisone 20 mg daily. 7. Ondansetron 8 mg 4x daily. 8. Metoprolol succinate 50 mg b.i.d. 9. Metformin 500 mg daily. 10. Lovastatin 20 mg daily. 11. Lisinopril 20 mg b.i.d. 12. Hydroxychloroquine sulfate 200 mg tablet 400 mg daily. 13. Gabapentin 300 mg t.i.d. FAMILY HISTORY: Positive for coronary artery disease. SOCIAL HISTORY: No history of tobacco abuse, alcohol abuse. REVIEW OF SYSTEMS: I tried to obtain 10 points review of systems but unable to obtain as she is intubated. PHYSICAL EXAMINATION: Blood pressure immediately after intubation 146/59, heart rate 59, oxygen saturation 97% on FiO2 50%. The patient is markedly obese. Neck is very short, difficult to comment upon JVD. Pupils appears to be constricted. Chest: Bilateral decreased air entry. CVS: Diffuse grade 2-3/6 ejection systolic murmur. No obvious S3-S4. P2 appears prominent. S1 appears normal. Abdomen: Markedly obese. Unable to palpate liver or spleen. Extremities: 1+ bilateral pedal edema and diffuse erythematous changes on both shins with scaly campbell. No evidence of critical limb ischemia. TOWER CONTROL OPERATOR examination could not be performed. Vascular: No evidence of critical limb ischemia. LABORATORIES: Digoxin level 0.3. WBC 25.1, hemoglobin 13.6, platelets 323, polymorphs 73.5. Sodium 142, potassium 5.7, BUN 56, creatinine 2.48. In June 2015 creatinine 1.2. Lactic acid 2.6. Glucose 189. Magnesium 2.6 with normal AST, ALT, bilirubin. Troponin T 0.017. ProBNP 602.6. Procalcitonin 0.22. X-ray chest as stated above, which revealed bilateral pneumonia or pulmonary edema with normal heart size, aortic calcification. No pleural effusion or pneumothorax. On March 21, 2014, V/Q scan of the lungs revealed high probability of pulmonary embolism. In April 2014 venous Doppler, no obvious DVT. EKG on admission revealed likely sinus rhythm with diffuse baseline artifact with nonspecific ST-T changes. QTc 474 msec. On telemetry, appears to have sinus rhythm, sinus bradycardia in the 50s-60s. ASSESSMENT AND PLAN: Acute hypoxic as well as hypercapnic respiratory failure, which appears to be multifactorial. Her WBC count is significantly elevated. She has a history of rheumatoid arthritis. There is a possibility of bilateral pneumonia. She has history of moderate aortic stenosis. Her BNP elevated. She may have diastolic heart failure precipitated by acute stress by infective process. She is morbidly obese. Clinically suspect significant sleep apnea. She has some risk factors for coronary artery disease. However, first set of troponin is not significantly elevated. She has some nonspecific ST-T changes. She has history of heart failure in the past with preserved LV function. She is morbidly obese which can contribute to heart failure with preserved systolic function as well. At this point of time from cardiac perspective, we will get an echocardiogram to make sure there is no worsening of aortic stenosis or endocarditis. Will assess systolic as well as diastolic function of the left ventricle and pulmonary hypertension and make sure there is no significant structural heart disease. Will recommend continuation of CPK troponin. Will recommend repeat blood culture. At present, she is on small dose of Levophed which will continue. I will stop digoxin. For the time being I will hold amiodarone to make sure we do not have acute pneumonitis due to amiodarone as well. At present, the patient is critically sick. Management of other underlying medical problems I will leave up to our hospitalist team. Once she will have a central line, we can get a better assessment of CVP which will help to decide about dose of diuretic and volume optimization. Thanks for the cardiology consult. Cardiology service will continue to follow. TOTAL TIME SPENT: For this critical care it is at least 70 minutes including reviewing old records. ADDITIONAL INFORMATION: ASSESSMENT AND PLAN: The patient has hyperkalemia in the setting of acidosis hypoxemia. She has sinus bradycardia in the face of hypoxemia, on amiodarone as well as high doses of beta bhargavi. She also has acute renal failure. At this point of time, FREDI inhibitor has been discontinued. Will recommend repleting her electrolytes including potassium. Hopefully, once acidosis gets better, renal failure gets better. Potassium will get normalized. Addenda added by BRIANA 05/21/17 at 1:37pm
[2017-05-21] MEDS ORDERED: OXYC-466 PO (11:33)
[2017-05-21] MEDS ORDERED: RANI150T11 PO (11:33)
--- NOTE | 2017-05-21 11:33 | DRSVH ---
[facility] [address] [place] [address] Echocardiogram Report Name: KIRSTY WHITLEY KStudy Date: 05/21/2017 Height: 63 in Hospital Exam Location: [facility] Weight: 300 lb Gender: Female BSA: 2.3 m2 : 1945 Age: 72 yrs BP: 97/50 mmHg Reason For Study: Congestive Heart Failure Ordering Physician: HOSPITALIST [facility] Performed By: Fang Feliciano Referring Physician: Lashon Calvert Interpretation Summary Patient was intubated and supine for the exam. Echo complete was modified to echo limited due to patient status. The left ventricle is normal in size. Left ventricular wall thickness is mildly increased. The ejection fraction is estimated to be 60-65%. The right ventricle is mildly dilated. Right ventricular systolic function is mildly reduced. The aortic valve is not well visualized. However do not appear to be critically stenosed. The aortic valve is moderately calcified. The peak aortic velocity is 2.9 m/sec. The aortic valve mean gradient is 19 mmHg. The peak aortic velocity on the previous exam was 3.2 m/sec. There is mild tricuspid regurgitation. Right ventricular systolic pressure is estimated to be 27 mmHg plus the clinically estimated CVP which cannot be estimated on this exam. No obvious valvular vegetation seen. Procedure: A two-dimensional transthoracic echocardiogram with color flow and Doppler was performed in limited views only. The study quality was technically adequate. Prior echo from [facility] [place] dated 08/20/2016, images are unavilable. Conclusions from prior noted EF 55-60%, moderate , moderate to severe pulmonary hypertension with RVSP at 50-60 mmHg.Patient is intubated at present. The heart rate ranged between 58-64 bpm during the study. Left Ventricle: The left ventricle is normal in size. Left ventricular wall thickness is mildly increased. There is no thrombus. The ejection fraction is estimated to be 60-65%. There are no focal wall motion abnormalities. Diastolic function could not be accurately assessed due to unobtainable data. Right Ventricle: The right ventricle is mildly dilated. Right ventricular systolic function is mildly reduced. Atria: The left atrium is severely dilated. The left atrium has mildly increased in size since the prior echo exam. The right atrium is mildly dilated. The interatrial septum is intact with no evidence for an atrial septal defect. Mitral Valve: There is mild to moderate mitral annular calcification. No significant mitral valve stenosis. There is trace mitral regurgitation. Aortic Valve: The aortic valve is not well visualized. The aortic valve is moderately calcified. There is moderate aortic stenosis. The peak aortic velocity is 2.9 m/sec. The peak aortic velocity on the previous exam was 3.2 m/sec. The aortic valve mean gradient is 19 mmHg. No aortic regurgitation is present. Tricuspid Valve: The tricuspid valve is not well visualized, but is grossly normal. There is mild tricuspid regurgitation. Right ventricular systolic pressure is estimated to be 27 mmHg plus the clinically estimated CVP which cannot be estimated on this exam. Pulmonic Valve: The pulmonic valve is not well visualized. Great Vessels: The aortic root is normal size. The ascending aorta is at the upper limits of normal in size. The IVC is dilated, but has some respiratory collapse suggesting high central venous pressure. The IVC has a measurement of 29 mm. Pericardium/ Pleura There is no pericardial effusion. There is no pleural effusion. MMode/2D Measurements & Calculations LVIDd: 4.6 cm IVSd: 1.2 cm LA A4 area: 24.7 cm LVPWd: 1.2 cm LA length (vol): 6.9 cm IVC diam: 2.8 cm RA long axis: 6.0 cm LVOT diam: 1.8 cm RA area: 24.5 cm AoV Openin.76 cm RA vol: 84.4 ml Ao root diam: 2.9 cm asc Aorta Diam: 3.7 cm RA : 36.7 ml/m2 LV diallo. diameter/BSA (cm/m^2): 2.0 RVD1 (basal): 4.3 cm TAPSE: 2.8 cm Doppler Measurements & Calculations Ao V2 max: 290.6 cm/sec TR max cheo: 260.1 cm/sec Ao max P.8 mmHg TR max P.1 mmHg Ao mean P.5 mmHg LVOT Max Cheo: 136.1 cm/sec PO(I,D): 1.3 cm sev ratio: 0.48 Ao V2 mean: 202.4 cm/sec LV V1 max P.4 mmHg Ao V2 VTI: 65.1 cm LV V1 VTI: 31.2 cm PO(V,D): 1.3 cm2 PO indexed to BSA (cm^2/m^2): 0.56 Reading Physician:AM
--- NOTE | 2017-05-21 11:36 | NUR ---
Admit Nurse: Pt intubated, no family available, admit completed from records. Unable to complete med rec at this time. Primary RN aware.
--- NOTE | 2017-05-21 11:42 | CONS ---
[address] [address] CONSULTATION REPORT PATIENT: KIRSTY WHITLEY : 1945 MR#: [id number] ADMIT: 05/21/2017 JOB ID: [id number] DATE OF SERVICE: 05/21/2017 INFECTIOUS DISEASE CONSULTATION: I thank Dr. Sears of the ICU team as well as Dr. Giles for this timely consult. REASON FOR CONSULT: Respiratory failure, hypotension and shock in a patient with multiple underlying medical problems. HISTORY OF PRESENT ILLNESS: The patient is an unfortunate 72-year-old woman with longstanding history of multiple serious medical problems including diabetes with neuropathy, rheumatoid arthritis, bullous pemphigoid and morbid obesity. She was hospitalized this summer at [facility] where she apparently had renal failure. She is followed actively by both Derm as well as Rheumatology. She was on Enbrel for eight years which ended apparently in 2013 when she was hospitalized with life-threatening group G streptococcal bacteremia secondary to cellulitis. She also had suffered an episode of pneumonia while on Enbrel though I do not have those details available through our computerized medical records. Recently the patient tells us that she has had a cold for a couple weeks with some sneezing, mild sore throat perhaps and a bit of a dry cough. She reports this was not an especially severe illness, and was not accompanied by fevers or chills, but yesterday she developed dramatically worsened shortness of breath with increasing cough, productive of what she terms "snot" which was yellow and green as well as perhaps some flecks of blood. This increasing cough and shortness of breath led her to the emergency department and she was subsequently admitted this morning with a chest radiograph showing bilateral pulmonary infiltrates. The patient lives at home with a small dog. She has not had contact with any sick persons and she has not traveled. She states she has not traveled ever to the [place], the [place] or overseas. She denies any unusual exposures. She is a lifetime nonsmoker. She is on chronic steroids and recently has been on prednisone 20 a day. She has taken Bactrim in the past but apparently no longer takes it because it may have played a role in her renal failure admission in February to [facility], but we need to obtain those records to confirm that. The patient was treated with Enbrel from about [id number]. More recently, she is on the drug Orencia as well as prednisone for her immunosuppressive agents. PAST MEDICAL HISTORY: 1. Organic heart disease: a. Atrial stenosis. b. Paroxysmal atrial fibrillation. c. Anticoagulation. 2. Diabetes mellitus with neuropathy. 3. Hypertension. 4. Rheumatoid arthritis. 5. Long-term steroid use. 6. Bullous pemphigoid. 7. Chronic pain syndrome. 8. Pulmonary embolism. 9. Morbid obesity. SOCIAL HISTORY: The patient is a lifelong nonsmoker, and does not consume alcohol or use illicit drugs. She lives in [place] with a small dog. FAMILY HISTORY: Negative for TB first and second degree relatives. REVIEW OF SYSTEMS: Was done just before the patient was intubated. She tells us she has not had any significant headache or visual change. No significant sore throat though it has been a bit scratchy in association with some sneezing for a couple weeks. She had a minimal cough until just yesterday when it became more thick, purulent and associated with profound shortness of breath leading to her impending intubation. No chest pain. No pleuritic chest pain specifically. No significant nausea, vomiting or diarrhea. No dysuria. Her legs are chronically swollen and red. This has not changed significantly. Her ability to ambulate is very limited. In reviewing her [employer] notes, the patient apparently comes to clinic in a wheelchair. Remainder of the review of systems was negative. PHYSICAL EXAMINATION: Reveals an obese woman lying supine in her ICU bed with BiPAP going. She was still lucid and able to give us some history though they were preparing the equipment for intubation when we examined her. Temperature is 38.6 degrees, pulse 56, respiratory rate in the 20s, just before she was intubated, blood pressure 119/35 and she is receiving fluid boluses for hypotension as we speak. She was saturating fairly well on the BiPAP but was clearly dyspneic when we examined her. Examination of the head reveals no evidence of trauma. No temporal wasting. Eyes without conjunctivitis or scleral icterus. Nose normal. Oral cavity without thrush, hairy leukoplakia or pharyngitis. Neck is quite obese without focal tenderness or evident JVD. No adenopathy is appreciated. Her neck is supple. Lungs with decreased breath sounds and scattered rales bilaterally. Cardiac tones distant but regular at this juncture. Abdomen soft, quite obese, nontender, no organomegaly. She does have an umbilical hernia which is easily reducible. She does have a West catheter. No suprapubic tenderness. Inguinal areas cannot be examined due to adiposity. Lower extremities notable for bilateral stasis dermatitis which is quite pronounced bilaterally and symmetrically. She has very decreased pulses in her feet. Basically I cannot palpate either dorsal pedal or posterior tibial pulses in either leg. Capillary refill is slow and her feet are slightly but not very cool. She does have significant neuropathy in the lower extremities. She can move all four extremities though and is lucid at this point. No evidence of synovitis but it is difficult to examine given her critical illness and obesity. LABORATORIES: Include white blood count 25,000. The differential is interestingly normal. Creatinine 2.48. It looks like her baseline is about 1.7, so it is worse. Potassium 5.7, glucose 189. LFTs completely normal. Procalcitonin on the first measurement just 0.22. Lactic acid 2.6 and 2.3 on two measurements. Urinalysis: No white cells. Urine Legionella antigen is pending. Urine pneumococcal antigen pending. Blood cultures pending. Chest x-ray was carefully reviewed during ICU rounds with the ICU team. Shows bilateral pulmonary infiltrates. Our only comparison film is from two years ago and it was quite clear. The nature of these bilateral infiltrates is unclear. It could be congestive heart failure, autoimmune process or infection. IMPRESSION: This is an extremely complex woman who with multiple overlapping medical problems including her organic heart disease, diabetes, rheumatoid arthritis and bullous pemphigoid. She is immunosuppressed by virtue of chronic steroid use as well as Orencia. She was on Enbrel but that ended a couple years ago apparently due to group G streptococcal bacteremia as well as a pneumonia during her eight year time within Enbrel. The differential diagnosis for today's respiratory decline as well as her hypotension is broad and includes bacterial, viral, fungal and noninfectious causes. High on the list I would be concerned about bacterial pneumonia such as Legionella, mycoplasma, chlamydia or perhaps pneumococcus or Staph aureus. Less likely would be Nocardia because of her long-term immunosuppression. For viruses I would be most concerned about influenza, parainfluenza virus 3, RSV and metapneumovirus. I think that it is quite likely that at least part of this symptomatology and respiratory failure are due to viral causes. Fungi are possible in this patient and she is not taking Septra anymore which could predispose her to Pneumocystis. Other possibilities in this area would include crypto. Aspergillus Fusarium and Mucor seem quite unlikely as she probably not that immunosuppressed and I would expect more focality to the radiographs. Non ID causes are plentiful here. She certainly could have rheumatoid lung, amiodarone toxicity, idiopathic interstitial lung disease, hypersensitivity pneumonitis or even cancer, but the course seems too acute for any of these processes. RECOMMENDATIONS: 1. This case discussed extensively with the ICU attending and during ICU rounds. 2. I agree with bronchoscopy and intubation both of which will be upcoming in the next hour. We discussed the studies from the bronchoscopy to be ordered. 3. I would drop the vanco as it will contribute to renal toxicity and we still do not know anything about MRSA status but MRSA pneumonia seems unlikely. 4. I would continue with Zosyn and levo. 5. A MRSA swab of the nares will be sent immediately. If this is positive, we will add back a drug for MRSA pneumonia, but will likely use linezolid or ceftaroline rather than vanco because of its renal issues. 6. Respiratory viral PCR panel will be done and available by noon or so. Obviously if she has influenza, will add oseltamivir to her regimen or perhaps peramivir. 7. Variety of other studies have been ordered including QuantiFERON Gold, urine Legionella and pneumococcal antigen, cryptococcal antigen, galactomannan, Fungitell and MRSA screen. 8. Will be closely following this complex case with you during the day and making changes as needed. 9. I am requesting all the records from [facility] from admission this past summer as it may become very important to know whether or not she can tolerate Bactrim.
[2017-05-21 12:24] LABS: BFWBC 55 /mm3; MONOCYTES,BODY FLUID 50 %; OTHER CELLS,BODY FLUID 0
--- NOTE | 2017-05-21 12:44 | ABG ---
DateTimeAnalyzed 12:41:11 -_ pH ____7.587 - 7.350 7.450 pCO2 ___31.6__ -mmHg 35.0 45.0 pO2 167 -mmHg 80.0 100 HCO3- ___30.0__ -mmol/L 22.0 26.0 ABE ____7.7__ -mmol/L -2.0 2.0 tHb ___11.0__ -g/dL 12.0 18.0 O2Hb ___97.7__ -% COHb ____0.4__ -% 1.5 MetHb ____0.0__ -% 0.4 1.5 sO2 ___98.0__ -% 95.0 AaDpO2 __294.5__ -mmHg FIO2 ___70.0__ -% PEEP ___10.0__ -cmH2O Set_RR 24 -b/min Vt __440.0__ -L Drawn By as - Date/Time Notified____ 12:44:00 -_ Spontaneous_RR 24 -b/min Oxygen Device 1 VENTILATOR - Notified By ams - Notified Whom dr natalee - K+ ____5.5__ -mmol/L 3.5 5.0 Calvin test _Positive -
[2017-05-21] MEDS: Chlorhexidine 0.12% 15 mL Oral Solution MT SCH ×3 (13:07→20:15)
--- NOTE | 2017-05-21 14:17 | PCM.PROC ---
Procedure Note Date of Service: May 21, 2017 Procedure Details: Date: 05/21/17 Time: 1100 Indication: Respiratory Distress Resident: Dr. Milton Ricketts Attending: Dr. Kushal Alcocer The patient was placed in a flat position. Poor dentition. Large tongue. Mallampati 4. ASA 4. Sedation was obtained using 20 mg IV etomidate. The patient was ventilated using an bipap at 100% fio2. The MAC 4 blade with GlideScope was used and inserted into the oropharynx at which time there was a view of the vocal cords. An endotracheal tube was inserted and visualized going through the vocal cords. The stylette was removed immediately after seeing the endotracheal tube pass through the vocal cords. Colorimetric change was visualized on the CO2 meter. Breath sounds were heard in both lung lemos equally with good chest rise. The endotracheal tube was placed at 22 cm, measured at the teeth. Dr. Alcocer was present for the entire procedure. A chest x-ray was confirmed no pneumothorax and verified good endotracheal tube placement in the trachea. Estimated Blood Loss: None. The patient tolerated the procedure well and there were no complications. Specifically no teeth were damaged during the procedure. Patient's neck was gently extended without any trauma. Milton Ricketts May 21, 2017 14:17 Kushal Alcocer MD May 21, 2017 15:58
--- NOTE | 2017-05-21 14:32 | PCM.PROC ---
Procedure Note Date of Service: May 21, 2017 Procedure Details: Date: 05/21/17 Time: 1100 Indication: Hemodynamic monitoring/Intravenous access Resident: Dr. Milton Ricketts Attending: Dr. Kushal Alcocer The patient was placed in the Trendelenburg position appropriate for central line placement. The patients right neck was prepped and draped in sterile fashion. All participants were wearing facemask and hat. I was wearing sterile gloves as well as sterile gown. A triple lumen catheter was introduced into the the internal jugular/vein using the Seldinger technique and under ultrasound guidance. The catheter was threaded smoothly over the guide wire and appropriate blood return was obtained. Each lumen of the catheter was evacuated of air and flushed with sterile saline. The catheter was then secured in place and sterile dressing applied. Perfusion to the extremity distal to the point of catheter insertion was checked and found to be adequate. Dr. Alcocer was present for the entire procedure. A CXR was ordered and the line was found to be in the proper place at the cavoatrial junction. No pneumothorax. Estimated Blood Loss: 2 cc The patient tolerated the procedure well and there were no complications. Milton Ricketts May 21, 2017 14:32 Kushal Alcocer MD May 21, 2017 16:01
--- NOTE | 2017-05-21 14:34 | NUR ---
NUTRITION ASSESSMENT: ASSESS: Pt is a 72yo F admitted to CCU for respiratory distress. She was on BIPAP but required intubation this am. Cardiology is following. Pt has been NPOx1 day. PMHX: Afib, macrocytic anemia, RA, DM, HLD, HTN, ARF LABS: Reviewed. K 5.7, Bun 56, circuit manager 2.48, Glu 189, lactic acid 2.6, Alb 4.0 MEDS: Reviewed. GI: 0 BM yet SKIN: no major issues noted, wound care note pending CURRENT WTS: 136.6kg, BMI: 53.5kg/m2, IBW: 52kg DIET: NPO EST. NEEDS: vent, BMI, ARF Kcals: 2700-3000kcal/day (20-22kcal/kg) Pro: 80-110g/day (1.5-2.0g/kg IBW) Fluids: ~2700-3000ml/day (1ml/kcal) NUTRITION DIAGNOSIS: 1.) Inadequate oral intake related to decreased ability to consume sufficient energy as evidenced by current NPO status NUTRITION INTERVENTION: 1.) If pt remains intubated, recommend TF of Pulmocare be started. Recommend start at 10ml/hr. If tolerated, advance by 10ml q 6 hrs until reach goal rate of 82ml/hr to provide 2706kcal and 111g/day (100% estimated needs) 2.) Adjust goal rate based on daily propofol rate if pt is receiving propofol MONITOR / EVAL: NPO/vent, TF start?, GI, labs, wt, POC, nutrition status. Will continue to monitor per high nutrition risk guidelines
--- NOTE | 2017-05-21 15:12 | PCM.CHPMED ---
Subjective Date of Service: May 21, 2017 Provider requesting consult: Harleen Giles MD Primary Physician: Admitting Physician: Harleen Giles MD Primary Care Physician: Reji Attending Physician: Harleen Giles MD Chief Complaint: Chief Complaint: Shortness of breath History of Present Illness: ICU Consult Note Patient is a 72-year-old female with a history of rheumatoid arthritis on Orencia and prednisone, heart failure, atrial fibrillation on warfarin, diabetes , and hypertension who presented in acute respiratory distress. She also has a history of hospital admission for acute renal failure presumably secondary to Bactrim. Per her previous report on admission, she reported about a week of mild upper respiratory symptoms, including sneezing, sore throat, mild cough productive of yellow sputum, hoarseness, and shortness of breath. She denied fevers or chills. She stated that she woke up this morning and was feeling progressively short of breath and was brought to the emergency department. In the ED, her chest x-ray showed bilateral areas of groundglass opacities. She was placed on BiPAP but failed. Immediately upon arrival to the ICU the patient was intubated. She is followed by Dr. Garibay of rheumatology for her rheumatoid arthritis. She was previously on etanercept for 8 years, but was hospitalized in 2013 with severe bacteremia with cellulitis as well as pneumonia. She is a lifetime nonsmoker, denied any sick contacts or recent travel. She is on chronic steroids - prednisone 20 mg daily, as well as abatacept. Review of Systems: Comprehensive review of systems unable to be conducted secondary to patient condition. [facility] Past Medical History History of paroxysmal atrial fibrillation status post DC cardioversion in March [address] Avery and started her on amiodarone. History of heart failure with preserved LV systolic function. Macrocytic anemia with history of GI bleed, severe bleed, secondary to ulcers and on warfarin. Bullous pemphigoid with history of left lower extremity ulcer Rheumatoid arthritis. History of recurrent left lower extremity cellulitis. Moderate aortic stenosis. Depression Diabetes mellitus, type 2, with neuropathy. Hyperlipidemia. Hypertension. Heart murmur secondary to aortic sclerosis (reports Echo done in January at [place] but unable to obtain report) Suspected obstructive sleep apnea( scheduled at [facility]) Morbid obesity with BMI 56.6. Acute renal failure due to dehydration, ARB, and Bactrim Sclerotic lesion of the left humerus (deferred to outpatient) Pulmonary embolism in February 2014. Endometriosis Surgical History Hysterectomy Bladder repair Bilateral knee arthroscopy Knee replacement Allergies: Coded Allergies: meperidine (Verified Allergy, Severe, Nausea,Vomiting, 05/21/17) swelling at administration site as well as nausea/vomiting morphine (Verified Adverse Reaction, Intermediate, Hallucinations, 05/21/17 ) MAKES HER FEEL "WIRED" Family History Family History Denies family history of coronary artery disease Social History Hx Alcohol Use: NoHx Substance Use: NoHx Tobacco Use: No Smoking Status: Never Smoker Living Arrangement: with Family Exam Vital Signs Vital Sign - Last Date Time Temp Pulse Resp B/P Pulse Ox O2 Delivery O2 Flow Rate FiO2 05/21/17 13:26 53 129/54 97 45 05/21/17 08:25 28 05/21/17 08:01 BiPAP 05/21/17 07:05 38.6 05/21/17 06:25 9 Additional Information: General: Sedated and intubated, in no acute distress. Head: Normocephalic, atraumatic. External ears normal. Eyes: PERRLA, EOMI. Anicteric sclerae. Mouth: Mouth normal, Mucous membranes moist/pink Neck: Neck supple with full range of motion. Chest& Lungs: Diffuse crackles, distant lung sounds Cardiovascular: Regular rate/rhythm, Normal S1, Normal S2, No murmurs/rubs/ gallops Abdomen: Non-tender, Non-distended, No masses, Normoactive bowel tones, Soft Extremities: No cyanosis/clubbing/edema bilaterally Neurological: Sedated and intubated. Lab and Diagnostics Result Diagram: 05/21/17 0515 05/21/17 0737 Assessment & Plan Assessment Patient is a 72-year-old female with a history of rheumatoid arthritis on Orencia and prednisone, heart failure with reserved ejection fraction, atrial fibrillation on warfarin, diabetes, and hypertension who presented in acute respiratory distress. Acute hypoxic and hypercapnic respiratory failure. Active. - Likely secondary to pneumonia and sepsis, although her JULIUS and obesity are likely contributing factors. Continued to decompensate on BiPAP, requiring intubation. - Continue mechanical ventilation - Continue sedation with propofol and fentanyl Acute sepsis. - Secondary to community-acquired pneumonia. Patient presents hypotensive with elevated lactic acid, leukocytosis, and fever. - Cover with Levaquin and Zosyn - NS @ 100 ml/hr. Fluid boluses with normal saline as required. - Levophed gtt - Trend lactic acid q2h until normal - Blood cultures and sputum cultures pending - Dr. Cheatham of infectious disease is consulted. We appreciate his input Community-acquired pneumonia in the context of immunosuppression - Patient reported URI symptoms over the last week. Pro-calcitonin 0.22. Given her immunosuppressed state while on abatacept and prednisone, must consider less common organisms. - Continue levofloxacin and Zosyn - Bronchoscopy with BAL was performed. Sent lavage fluid for cultures and cytology. - Viral PCR pending - Blood cultures and sputum cultures pending - Strep pneumo and Legionella antigens pending Acute renal failure. Active. - Likely secondary to septic shock. Patient is likely volume depleted. We will replete fluids. - NS @ 100 ml/hr - Avoid nephrotoxic agents - Monitor BMP Acid Base Disorders - She also has a primary anion gap metabolic acidosis likely secondary to lactic acidosis and acute renal failure. Will continue to follow lactic acid and BMP. - She also has a primary metabolic alkalosis. No vomiting, NG suction, diuretic use. Will continue to monitor. Rheumatoid arthritis, chronic. - Patient is currently on abatacept and prednisone. [employer] Lead Dr. Garibay. - Continue prednisone - Hold abatacept for now Congestive heart failure with preserved ejection fraction - Chest x-ray shows diffuse pulmonary infiltrates. Pulmonary edema versus interstitial lung disease is the main differential at this time. - Echocardiogram ordered - Dr. Castro of Cardiology has been consulted. We appreciate his input. Elevated troponin, acute. - Patient presented with trop 0.017 on admission, which increased to 0.08. Nonspecific ST changes on EKG. Likely more a demand ischemia picture than an ACS picture. - Trend troponin - Monitor on telemetry Morbid obesity with likely obstructive sleep apnea - Possibly attributing to her respiratory failure Disposition: ICU while intubated. Family has been notified and discussed the case with her cousins, as well as her son who lives in [place]. Son is the DPOA. Her daughter lives in [facility] is on her way to visit now. Problems: VTE Prophylaxis: Theraputic Anticoag with Warfarin Resuscitation Status: CPR: Attempt Resuscitation Time spent Total time spent in direct patient care thus far independent of all procedures 140 minutes. Attending Statement Patient seen and examined. Pertinent labs and imaging reviewed. Findings reviewed and discussed with the resident. Amendments made verbally with the resident and/or directly on this document. Agree with the above. Milton Ricketts May 21, 2017 13:44 Kushal Alcocer MD May 21, 2017 16:16
[2017-05-21] MEDS ORDERED: Hydrocortisone 50 mg/mL 2 mL Inj IVPUSH ONE (16:10)
[2017-05-21] MEDS ORDERED: Dextrose 10% 250 ML IV PRN (16:25)
--- NOTE | 2017-05-21 16:44 | PCM.PROC ---
Procedure Note Date of Service: May 21, 2017 Pre Procedure Diagnosis: Acute hypercarbic hypoxemic respiratory failure Post Procedure Diagnosis: Same Procedure: Bronchoscopy with BAL Indication for Procedure: Multilobar pneumonia Findings: Bronchoscope adapter was applied to the endotracheal tube. I personally inserted the bronchoscope through the adapter and into the endotracheal tube. ET tube was 2 cm above the curt. Some copious secretions were noted bilaterally. A BAL was performed of the right lower lobe, right middle lobe and lingula and sent for the appropriate studies. Remaining airway was suctioned clear of purulent secretions. Patient tolerated procedure well without any complications. Procedural Analgesia: Sedated and ventilated on propofol and fentanyl. Post Procedure Plan: Endotracheal tube withdrawn 1 cm and confirmed with chest x-ray. Kushal Alcocer MD May 21, 2017 16:44
[2017-05-21] MEDS: Piperacillin-Tazo 3.375 Gm Inj 3.375 GM in Dextrose 5% Minibag Plus 50 ML IV SCH (17:14)
--- NOTE | 2017-05-21 17:22 | NUR ---
Inpatient Wound Nurse Patient seen for Pressure Injury Prevention Protocol. No specific pressure injuries found and patient is on appropriate surface. Nursing staff are following pressure injury prevention protocols. CWON RN available if any PI develop.
--- NOTE | 2017-05-21 17:40 | PCM.PROC ---
Procedure Note Date of Service: May 21, 2017 Procedure Details: Date of Service: May 21, 2017 Time: 1730 Diagnosis: Sepsis, acute respiratory failure Provider: Dr. Milton Ricketts Attending: Dr. Kushal Alcocer Indication: Hemodynamic monitoring, ABG A time-out was completed verifying correct patient, procedure, site, positioning , and special equipment if applicable. The patients right wrist was prepped and draped in sterile fashion. An arterial line was introduced into the radial artery. The catheter was threaded over the guide wire and the needle was removed with appropriate pulsatile blood return. The catheter was then secured place to the skin and a sterile dressing applied. Perfusion to the extremity distal to the point of catheter insertion was checked and found to be adequate. Dr. Alcocer was present for the entire procedure. Estimated Blood Loss: 2 ml The patient tolerated the procedure well and there were no complications. Milton Ricketts May 21, 2017 17:40
--- NOTE | 2017-05-21 17:45 | NUR ---
CHF Education order received Pt intubated. Will follow progress notes and phase in patient education services as appropriate.
[2017-05-21] MEDS: Hydrocortisone 50 mg/mL 2 mL Inj IVPUSH SCH (17:56)
[2017-05-21] MEDS: Propofol Inj 1,000,000 MCG in IV Premix 1 EACH IV SCH ×3 (18:00→23:01)
--- NOTE | 2017-05-21 19:36 | NUR ---
Intubated this AM after inadequate improvement on BiPAP, CVL and A-line placed, please see physician's procedural notes for details. Initially hypotensive on arrival to CCU, NS bolus of 2 liters administered as well as started Levophed. Please see CCU flow sheet for vital sign details and gtt titration. Levophed currently at 0.05mcg/kg with blood pressure 143/48(73). Propofol and fentanyl titrated for sedation and procedures, Propofol now at 50mcg and fentanyl 150mcg anticipating replacement of CVL which will now be done in AM. Report to oncoming RN, continue to wean pressor and sedation as tolerated. Addendum: 05/22/17 at 0745 by MAO KENYON RN Skin: On arrival to CCU pt noted to have old bruising present on right side of back laterally near flank and scapula. Pt able to confirm recent falls at home. Bandaids present bilat axilla to protect skin from abrasion r/t use of crutches at home. Folds under breasts have yeast like rash R>L as well as some irritation within pannus underfold. On sacrum there is darkened tissue toward both sides of coccyx from previous pressure ulcers that are now healed. Both LE/calves have chronic stasis changes but are intact. Small skin tears are present right forearm. Pt is able to confirm use of nystatin type powder at home, updated with order rec'd for same. PU protocol initiated for low kristian, hx ulcers. Report to facs teacher, no active issues for them at this time.
--- NOTE | 2017-05-21 21:44 | DRSVH ---
PROCEDURE: X-RAY CHEST ONE VIEW, PORTABLE ([id number]) INDICATIONS: LINE PLACEMENT TECHNIQUE: One view of the chest was acquired. COMPARISON: [facility], CR, XR CHEST 1VW (PORTABLE), 05/21/2017, 11:43. FINDINGS: Surgical changes and devices: Endotracheal tube is seen with the tip approximately 4 cm above the car jacoby. The tip of the right central venous catheter is not well-seen although probably at the cavoatria l junction. Left central venous catheter is also present with the tip probably at the cavoatrial junc tion Lungs and pleura: No pleural effusions or pneumothorax. Right basilar consolidation appears unchange d and retrocardiac consolidative opacities are increased. No definite new consolidation. Mediastinum: Mediastinal contours appear normal. Heart size is normal. Bones and chest wall: No suspicious bony lesions. Overlying soft tissues appear unremarkable. IMPRESSION: Support equipment as above. Left central venous catheter with the tip probably projecting in the mikey on of the cavoatrial junction although not well seen. No pneumothorax. Increased left retrocardiac consolidative opacity. Unchanged appearance of right basilar patchy consolidation. Dictated by: Cj Alarcon M.D. on 05/21/2017 at 21:40 Approved by: Cj Alarcon M.D. on 05/21/2017 at 21:43
[2017-05-21] MEDS: Insulin Human REGular 300 Unit/3 mL Inj SUBQ SCH (23:07)
[2017-05-22] VITALS (12 sets, daily range): BP systolic 126–179; BP diastolic 43–70; PULSE 36–49; RESP 14–20; O2SAT 95–98
[2017-05-22] MEDS ORDERED: Hydrocortisone 50 mg/mL 2 mL Inj IVPUSH SCH (00:30)
[2017-05-22] MEDS: Hydrocortisone 50 mg/mL 2 mL Inj IVPUSH SCH ×3 (01:06→16:12)
[2017-05-22] MEDS: Sodium Chloride LOK Flush 10 mL Syringe IVFLUSH SCH ×3 (01:06→16:06)
[2017-05-22] MEDS: Piperacillin-Tazo 3.375 Gm Inj 3.375 GM in Dextrose 5% Minibag Plus 50 ML IV SCH ×3 (01:06→16:05)
[2017-05-22] MEDS: Chlorhexidine 0.12% 15 mL Oral Solution MT SCH ×6 (01:07→21:51)
--- NOTE | 2017-05-22 01:40 | PCM.PROC ---
Procedure Note Date of Service: May 21, 2017 Pre Procedure Diagnosis: Sepsis, acute respiratory failure Post Procedure Diagnosis: Sepsis, acute respiratory failure Procedure: Left internal jugular central line Provider and Egg Buyer: Resident: Dr. Baljit Ahuja Attending: Dr. Kushal Alcocer Indication for Procedure: Hemodynamic monitoring/Intravenous access Procedure Details: The patient was placed in the Trendelenburg position appropriate for central line placement. The patients left neck was prepped and draped in sterile fashion. All participants were wearing facemask and hat. I was wearing sterile gloves as well as sterile gown. A triple lumen catheter was introduced into the internal jugular/vein using the Seldinger technique and under ultrasound guidance. The catheter was threaded smoothly over the guide wire and appropriate blood return was obtained. Each lumen of the catheter was evacuated of air and flushed with sterile saline. The catheter was then secured in place and sterile dressing applied. Perfusion to the extremity distal to the point of catheter insertion was checked and found to be adequate. Dr. Alcocer was present for the entire procedure. A CXR was ordered and the line was found to be in the proper place at the cavoatrial junction. No pneumothorax. Estimated Blood Loss: 2 cc The patient tolerated the procedure well and there were no complications. BALJIT AHUJA DO May 22, 2017 01:40
[2017-05-22] MEDS: Propofol Inj 1,000,000 MCG in IV Premix 1 EACH IV SCH ×5 (01:58→22:19)
[2017-05-22] MEDS: Insulin Human REGular 300 Unit/3 mL Inj SUBQ SCH ×4 (04:04→21:53)
[2017-05-22 05:02] LABS: Phosphorus 2.5 mg/dL (2.5-4.9)
[2017-05-22 05:12] LABS: TROPONIN T 0.174 ug/L (0.0-0.011)
--- NOTE | 2017-05-22 05:37 | ABG ---
DateTimeAnalyzed 05:33:08 -_ pH ____7.545 - 7.350 7.450 pCO2 ___29.2__ -mmHg 35.0 45.0 pO2 ___81.9__ -mmHg 80.0 100 HCO3- ___25.2__ -mmol/L 22.0 26.0 ABE ____2.5__ -mmol/L -2.0 2.0 tHb ___10.0__ -g/dL 12.0 18.0 O2Hb ___95.8__ -% COHb ____0.6__ -% 1.5 MetHb ____0.0__ -% 0.4 1.5 sO2 ___96.1__ -% 95.0 AaDpO2 ___34.2__ -mmHg FIO2 ___21.0__ -% PEEP ___10.0__ -cmH2O Set_RR 20 -b/min Vt __440.0__ -L Drawn By TLA - Date/Time Notified____ 05:37:00 -_ Spontaneous_RR 20 -b/min Oxygen Device 1 VENTILATOR - Notified By TLA - Notified Whom ___KIM-RN - K+ ____3.6__ -mmol/L 3.5 5.0 Calvin test N/A -
--- NOTE | 2017-05-22 05:40 | ABG ---
DateTimeAnalyzed 05:33:08 -_ pH ____7.545 - 7.350 7.450 pCO2 ___29.2__ -mmHg 35.0 45.0 pO2 ___81.9__ -mmHg 80.0 100 HCO3- ___25.2__ -mmol/L 22.0 26.0 ABE ____2.5__ -mmol/L -2.0 2.0 tHb ___10.0__ -g/dL 12.0 18.0 O2Hb ___95.8__ -% COHb ____0.6__ -% 1.5 MetHb ____0.0__ -% 0.4 1.5 sO2 ___96.1__ -% 95.0 AaDpO2 __134.3__ -mmHg FIO2 ___35.0__ -% Drawn By TLA - Date/Time Notified____ 05:37:00 -_ Notified By TLA - Notified Whom ___KIM-RN - K+ ____3.6__ -mmol/L 3.5 5.0 Calvin test N/A -
[2017-05-22] MEDS: 0.9% Sodium Chloride 1,000 ML IV SCH ×2 (08:08→18:33)
[2017-05-22] MEDS: Nystatin 100,000 Unit/Gm 15 Gm Powder TOPICAL SCH ×2 (08:08→21:51)
[2017-05-22] MEDS ORDERED: levoFLOXacin Inj 750 MG in IV Premix 1 EACH IV SCH (08:30)
[2017-05-22 08:57] LABS: BASOPHILS % (AUTO) 0 % (0-3); EOSINOPHILS % (AUTO) 0.1 % (0-5); MONOCYTES % (AUTO) 7.3 % (4-12); Mean Corpuscular Hemoglobin 28.5 pg (27.0-35.0); Mean Corpuscular Volume 91.5 fL (81-100); NEUTROPHILS % (AUTO) 83.5 % (40-74); Platelet Count 185 bil/L (150-400)
[2017-05-22 09:17] LABS: INR 2.1 ratio
[2017-05-22 09:25] LABS: Magnesium 2.1 mg/dL (1.6-2.6); Phosphorus 3.1 mg/dL (2.5-4.9)
--- NOTE | 2017-05-22 11:26 | PCM.CONPHA ---
Subjective Date of Service: May 22, 2017 Warfarin dosing Reason for Pharmacy Consult: Anticoagulation Management Objective Vital Signs Date Time Temp Pulse Resp B/P Pulse Ox O2 Delivery O2 Flow Rate FiO2 05/22/17 08:00 Ventilator 05/22/17 08:00 36.8 47 19 130/45 96 Mechanical Ventilator 25 05/22/17 07:55 39 134/46 98 35 05/22/17 04:30 Ventilator 05/22/17 04:30 36.8 48 20 171/62 96 35 05/22/17 03:52 45 170/58 95 35 05/22/17 00:30 37.1 49 20 156/55 96 40 05/22/17 00:30 Ventilator 05/21/17 23:48 50 164/56 95 40 05/21/17 21:01 52 164/56 98 45 05/21/17 20:30 37.3 52 20 159/52 98 Mechanical Ventilator 45 05/21/17 20:30 Ventilator 05/21/17 17:03 55 157/47 98 45 05/21/17 16:00 38.2 55 20 163/53 98 Mechanical Ventilator 45 05/21/17 16:00 Ventilator 05/21/17 13:26 53 129/54 97 45 05/21/17 12:45 50 05/21/17 12:00 Ventilator 05/21/17 12:00 38.1 56 24 162/53 100 Mechanical Ventilator 70 Intake and Output 05/20/17 05/21/17 05/22/17 00:00 00:00 00:00 Intake Total 3522 ml Output Total 2850 ml Balance 672 ml Weight (Kilograms): 138.300 Height (Feet): 5 Height (Inches): 2.00 Test 05/21/17 06:55 05/21/17 07:08 05/21/17 07:37 05/21/17 08:35 Urine Legionella pneumophilia Ag Negative (Negative) Urine Color Yellow (YELLOW) Urine Appearance Clear (CLEAR,HAZY) Urine pH 6.0 (5.0-8.0) Urine Specific [place] 1.013 (1.003-1.035) Urine Protein Negativemg/dL (NEG,TRACE) Urine Glucose (UA) Negativemg/dL (NEGATIVE) Urine Ketones Negativemg/dL (NEGATIVE) Urine Occult Blood Trace (NEGATIVE) Urine Nitrite Negative (NEGATIVE) Urine Bilirubin Negative (NEGATIVE) Urine Urobilinogen Normalmg/dL (NORMAL) Urine Leukocyte Esterase Negative (NEGATIVE) Urine RBC 0-2/hpf (0-2) Urine WBC 0-5/hpf (0-5) Urine Epithelial Cells Few/hpf (NONE-MOD) Urine Crystals None seen (NONE SEEN) Urine Bacteria Few/hpf (NONE-FEW) Urine Hyaline Casts None/lpf (NONE) Urine Granular Casts None seen (NONE SEEN) Urine Waxy Casts None seen (NONE SEEN) Urine Red Blood Cell Casts None seen (NONE SEEN) Urine White Blood Cell Casts None seen (NONE SEEN) Urine Mucus None seen (None Seen) Urine Trichomonas None seen (NONE SEEN) Urine Yeast None (NONE SEEN) Urine Culture Reflexed Not indicated Vitamin B12 Level 256pg/mL (211-946) Folate 10.1ng/mL (>3.0) Activated Partial Thromboplast Time 35.6sec (22.8-33.0) Uric Acid 11.8mg/dL (2.6-7.2) Prealbumin 17mg/dL (20-40) Thyroid Stimulating Hormone (TSH) 0.439uIU/mL (0.450-4.500) Test 05/21/17 10:00 05/21/17 11:58 05/22/17 04:05 05/22/17 08:33 Body Fluid Source Bronchial washing Body Fluid Color (Clear) Body Fluid Appearance Hazy Body Fluid WBC 55/mm3 Body Fluid RBC 5175/mm3 Body Fluid Polynuclear WBCs 40% Body Fluid Lymphocytes 10% Body Fluid Monocytes 50% Body Fluid Eosinophils 0% Body Fluid Basophils 0% Lactic Acid Level 2.2mmol/L (0.4-2.0) Troponin T 0.174ug/L (0.0-0.011) Pro-B-Type Natriuretic Peptide 3883pg/mL (0-301) Triglycerides Level 172mg/dL (0-149) Cholesterol Level 152mg/dL (100-199) LDL Cholesterol, Calculated 58.600mg/dL (0-99) VLDL Cholesterol 34.400mg/dL HDL Cholesterol 59mg/dL (>39) Cholesterol/HDL Ratio 2.58 (0.0-4.4) Procalcitonin 5.52ng/mL (0.00-0.08) Digoxin Level 0.3nG/mL (0.9-2.0) White Blood Count 8.0th/mm3 (3.8-10.1) Red Blood Count 3.30mil/mm3 (3.90-5.20) Hemoglobin 9.4g/dL (12.0-15.6) Hematocrit 30.2% (35.0-46.0) Mean Corpuscular Volume 91.5fL (81-100) Mean Corpuscular Hemoglobin 28.5pg (27.0-35.0) Mean Corpuscular Hemoglobin Concent 31.1% (32.0-37.0) Red Cell Distribution Width 13.6% (12.3-15.4) Platelet Count 185bil/L (150-400) Neutrophils (%) (Auto) 83.5% (40-74) Lymphocytes (%) (Auto) 8.8% (14-46) Monocytes (%) (Auto) 7.3% (4-12) Eosinophils (%) (Auto) 0.1% (0-5) Basophils (%) (Auto) 0% (0-3) Prothrombin Time 22.8sec (8.1-12.5) Prothromb Time International Ratio 2.10ratio Sodium Level 144mEq/L (134-144) Potassium Level 4.0mEq/L (3.5-5.2) Chloride Level 105mEq/L (97-108) Carbon Dioxide Level 26mmol/L (18-29) Blood Urea Nitrogen 45mg/dL (8-27) Creatinine 1.75mg/dL (0.57-1.00) Estimat Glomerular Filtration Rate 41mL/min (>59) Glucose Level 208mg/dL (60-99) Calcium Level 8.3mg/dL (8.5-10.1) Phosphorus Level 3.1mg/dL (2.5-4.9) Magnesium Level 2.1mg/dL (1.6-2.6) Total Bilirubin 0.4mg/dL (0.0-1.2) Aspartate Amino Transf (AST/SGOT) 15U/L (0-50) Alanine Aminotransferase (ALT/SGPT) 12U/L (0-32) Alkaline Phosphatase 47U/L (25-165) Total Protein 5.3g/dL (6.4-8.4) Albumin 2.8g/dL (3.4-5.0) Assessment/Plan Assessment/Plan Pt is a 72yo female admitted with respiratory failure, hypotension, and shock, on warfarin for PAF. INR goal 2-3. Labs as above. Will give warfarin 2.5mg PO tonight per home regimen. Pharmacy will continue to follow this pt's warfarin therapy. Josephine Thomas PharmD May 22, 2017 11:26
[2017-05-22] MEDS ORDERED: .Epic Conversion Completed XX PRN (11:30)
[2017-05-22 12:07] LABS: Cryptococcal Ag Negative (Negative)
--- NOTE | 2017-05-22 12:37 | NUR ---
NUTRITION FOLLOW UP: ASSESS: Pt is a 72yo F admitted to CCU for respiratory distress, remains intubated; Acute renal failure likely related to septic shock, rhino/enterovirus with consult to infectious disease. Wound RN consult pending. Pt remains NPO, now x 2d. PMHX: Afib, macrocytic anemia, RA, DM, HLD, HTN, ARF LABS: Reviewed. BUN 46, Cr 1.93, Glu 218,Lactic Acid 2.2,Ca 8.4,Alb 3.0 MEDS: Reviewed. Propofol 50mcg, NS at 100ml GI: 0 BM yet SKIN: no major issues noted, wound care note pending CURRENT WTS: 138.3kg, BMI: 55.8kg/m2, IBW: 52kg DIET: NPO(x2d) EST. NEEDS: vent, BMI, ARF Kcals: 2700-3000kcal/day (20-22kcal/kg) Pro: 80-110g/day (1.5-2.0g/kg IBW) Fluids: ~2700-3000ml/day (1ml/kcal) NUTRITION DIAGNOSIS: 1.) Inadequate oral intake related to decreased ability to consume sufficient energy as evidenced by NPO x 2d--PERSISTS NUTRITION INTERVENTION: 1.) If pt remains intubated, recommend TF of Pulmocare be started. Recommend start at 10ml/hr. If tolerated, advance by 10ml q 6 hrs until reach goal rate of 82ml/hr to provide 2706kcal and 111g/day (100% estimated needs) 2.) Adjust goal rate based on daily propofol rate if pt is receiving propofol MONITOR / EVAL: NPO/vent, TF start?, GI, labs, wt, POC, nutrition status. Will continue to monitor per high nutrition risk guidelines
--- NOTE | 2017-05-22 12:59 | DRSVH ---
PROCEDURE: X-RAY CHEST ONE VIEW, PORTABLE ([id number]) INDICATIONS: OG tube placement TECHNIQUE: One view of the chest was acquired. COMPARISON: None. FINDINGS: Surgical changes and devices: Endotracheal and nasogastric tubes appear normal. The nasogastric tub e extends inferiorly into the gastric lumen area. The endotracheal tube tip extends to the inferior medial clavicular head level. What appears to be a central line extends across from left to right in to the expected position of the distal SVC.. Lungs and pleura: No pleural effusions or pneumothorax. Lungs are mildly edematous, and there may b e pneumonia at each lung base greater on the left than the right as was previously the case. Radiode nsity at the right lower lung has mildly worsened. Mediastinum: Mediastinal contours appear normal. Heart size is at the upper limits of normal but th is is in the setting of large body habitus and reduced inspiration. Bones and chest wall: No suspicious bony lesions. Overlying soft tissues appear unremarkable. IMPRESSION: Large body habitus, reduced inspiration, mild pulmonary edema with bibasilar pneumonia. Lines and tubes in normal position. Heart size is at or just above the upper limits of normal. Dictated by: Alin Arrieta M.D. on 05/22/2017 at 12:56 Approved by: Alin Arrieta M.D. on 05/22/2017 at 12:58
--- NOTE | 2017-05-22 17:32 | PCM.PNMED ---
Subjective Date of Service May 22, 2017 Subjective Chief complaint: Shortness of breath Patient was intubated upon arrival ICU 05/21. Ventilator day #2. Remains bradycardic however it is no longer requiring pressors. Rhinovirus isolated from bronchoscopy lavage. She failed CPAP trials today. Another left IJ central line was placed last evening as the central line placed earlier had an defective port. Right IJ removed. OG to placed. Chest x-ray personally reviewed: Worsening bilateral infiltrates. Endotracheal tube, OG tube and central lines in good position. Exam Vital Signs Vital Sign - Last Date Time Temp Pulse Resp B/P Pulse Ox O2 Delivery O2 Flow Rate FiO2 05/22/17 15:55 44 126/43 97 25 05/22/17 08:00 Ventilator 05/22/17 08:00 36.8 19 05/21/17 06:25 9 Intake and Output 05/21/17 05/21/17 05/22/17 Cumulative From/Thru 15:00 23:00 07:00 05/21/17 08:30 - 05/22/17 06:12 Intake Total 3522 ml 1924 ml 5446 ml Output Total 2850 ml 1250 ml 4100 ml Balance 672 ml 674 ml 1346 ml Intake IV Total 3522 ml 1924 ml 5446 ml Output Urine Total 2850 ml 1250 ml 4100 ml # Bowel Movements 0 0 0 Exam General: Sedated and intubated, in no acute distress. Head: Normocephalic, atraumatic. External ears normal. Eyes: PERRLA, EOMI. Anicteric sclerae. Mouth: Mouth normal, Mucous membranes moist/pink Neck: Neck supple with full range of motion. Chest& Lungs: Diffuse crackles, distant lung sounds Cardiovascular: Bradycardia, Normal S1, Normal S2, No murmurs/rubs/gallops Abdomen: Non-tender, Non-distended, No masses, Normoactive bowel tones, Soft Extremities: No cyanosis/clubbing/edema bilaterally Neurological: Sedated and intubated. IVs and Medications Medications Reviewed: Medications were reviewed in detail Lab and Diagnostics Result Diagram: 05/22/1783205/22/17832 X-Rays, CTs and MRIs PROCEDURE: X-RAY CHEST ONE VIEW, PORTABLE ([id number]) INDICATIONS: Resp distress TECHNIQUE: One view of the chest was acquired. COMPARISON: [facility], CR, CHEST 2VW, 01/09/2015, 12:06. [facility], CR, XR CHEST 2VW, 07/13/2016, 14:04. [facility], CR, CHEST 1VW (PORTABLE), 07/10/2014, 17:01. FINDINGS: Surgical changes and devices: None. Lungs and pleura: There are bilateral interstitial and airspace infiltrates consistent with pneumonia or pulmonary edema. No pleural effusions or pneumothorax. Mediastinum: Mediastinal contours appear normal. Heart size is normal. Aortic calcification consistent with atherosclerosis. Bones and chest wall: No suspicious bony lesions. Overlying soft tissues appear unremarkable. IMPRESSION: Bilateral pneumonia or pulmonary edema. Dictated by: Luma Paiz M.D. on 05/21/2017 at 8:46 Approved by: Luma Paiz M.D. on 05/21/2017 at 8:48 12-lead ECG See history of present illness Assessment & Plan Assessment & Plan Patient is a 72-year-old female with a history of rheumatoid arthritis on Orencia and prednisone, heart failure with reserved ejection fraction, atrial fibrillation on warfarin, diabetes, and hypertension who presented in acute respiratory distress. Acute hypoxic and hypercapnic respiratory failure. Active. - Likely secondary to pneumonia and sepsis with JULIUS and obesity contributing. - Continue mechanical ventilation - Continue sedation with propofol and fentanyl Acute sepsis. - Secondary to community-acquired pneumonia. Patient presents hypotensive with elevated lactic acid, leukocytosis, and fever. - Cover with Levaquin and Zosyn - Levophed gtt as needed. - Trend lactic acid q2h until normal - Blood cultures, BAL and sputum cultures pending - Dr. Cheatham of infectious disease is managing antibiotics. Community-acquired pneumonia in the context of immunosuppression - Patient reported URI symptoms over the last week. Pro-calcitonin 0.22. Given her immunosuppressed state while on abatacept and prednisone, must consider less common organisms. - Continue levofloxacin and Zosyn - Bronchoscopy with BAL was performed 05/21. Sent lavage fluid for cultures and cytology. - Viral PCR positive for rhinovirus. Acute renal failure. Active. - Likely secondary to septic shock. Patient is likely volume depleted. We will replete fluids. - Fluids as needed. - Avoid nephrotoxic agents - Monitor BMP Rheumatoid arthritis, chronic. - Patient is currently on abatacept and prednisone. [employer] Dr. Garibay. - Continue prednisone to avoid shock from adrenal insufficiency. - Hold abatacept. Aortic stenosis - Chest x-ray shows diffuse pulmonary infiltrates. Pulmonary edema versus interstitial lung disease is the main differential at this time. - Echocardiogram reviewed. EF 60% while on pressors. - Dr. Castro of Cardiology has been consulted. We appreciate his input. Elevated troponin, acute. - Patient presented with elevated troponins. Nonspecific ST changes on EKG. Likely more a demand ischemia picture than an ACS picture. -Further recommendations per cardiology. Bradyarrhythmia - Despite a map of 40 on admission patient's heart rate was only 50. She takes to digoxin as well as amiodarone. Propofol may be contributing to continued bradycardia. No evidence of lethal EKG changes. Morbid obesity with likely obstructive sleep apnea -CPAP/BiPAP once extubated. VTE Prophylaxis: Theraputic Anticoag with Warfarin Resuscitation Status: CPR: Attempt Resuscitation Time spent Total critical care time spent in direct patient care today 40 minutes Kushal Alcocer MD May 22, 2017 17:32 Congestive heart failure with preserved ejection fraction - Chest x-ray shows diffuse pulmonary infiltrates. Pulmonary edema versus interstitial lung disease is the main differential at this time. - Echocardiogram ordered - Dr. Castro of Cardiology has been consulted. We appreciate his input. Elevated troponin, acute. - Patient presented with trop 0.017 on admission, which increased to 0.08. Nonspecific ST changes on EKG. Likely more a demand ischemia picture than an ACS picture. - Trend troponin - Monitor on telemetry Morbid obesity with likely obstructive sleep apnea - Possibly attributing to her respiratory failure VTE Prophylaxis: Theraputic Anticoag with Warfarin Resuscitation Status: CPR: Attempt Resuscitation Kushal Alcocer MD May 22, 2017 17:32
--- NOTE | 2017-05-22 17:45 | PROG NOTE ---
[address] [address] PROGRESS NOTE PATIENT: KIRSTY WHITLEY : 1945 MR#: [id number] ADMIT: 05/21/2017 JOB ID: [id number] DATE: 05/22/2017 SUBJECTIVE: The patient is intubated. She is not able to provide history. In summary, this 72-year-old, female, who has a history of morbid obesity with BMI 56.6, history of atrial fibrillation, status post DC cardioversion by Dr. Avery in March 2015, who was on amiodarone since then, history of heart failure with preserved ejection fraction, moderate aortic stenosis, history of rheumatoid arthritis, on immunosuppressive treatment, history of bullous pemphigoid, history of recurrent left lower extremity cellulitis, type 2 diabetes mellitus, essential hypertension, hyperlipidemia, depression, possible sleep apnea, history of pulmonary embolism in February 2014, presented with acute onset of shortness of breath. She was in respiratory distress. She was in acute hypoxic as well as hypercapnic respiratory failure with elevated WBC count, lactate fever. On x-ray there was concern for pulmonary edema or bilateral pneumonia. Subsequently the patient got intubated. I saw her yesterday. She underwent echocardiogram which revealed normal left ventricle size with LV ejection fraction 60-65, without any obvious wall motion abnormalities. Mildly decreased left ventricle wall thickness. Right ventricle was mildly dilated with mildly reduced right ventricular function. Overall, the aortic valve appears to be moderately stenosed not critically. Peak aortic valve velocity was 2.9 m/sec and mean gradient 19 mmHg with mild TR. Pulmonary artery systolic pressure was about 27 mmHg plus estimated CVP. No obvious valvular pathology seen. The patient was also bradycardic. She was on amiodarone and good doses of beta blockers which were discontinued. The patient also has hyperkalemia which got resolved. OBJECTIVE: Blood pressure 126/43, heart rate in 40s, respiratory rate 19, oxygen saturation 25%, FiO2 97%. Neck is short, obese, difficult to comment upon JVP, however CVP as per the nurse was about 13. Decreased air entry at the bases. CVS: No S3, no S4, grade II-III/ ejection systolic murmur diffuse, no new changes. Abdomen: Markedly obese. Extremities: Appears to be warm. Mild pedal edema. Diffuse erythematous changes on both shins. Vascular: No evidence of critical limb ischemia. Telemetry: Sinus rhythm with sinus bradycardia in 40s. LABORATORY DATA: Sodium 144, potassium 4.0, BUN 45, creatinine 1.75. On admission creatinine was 2.48, magnesium 2.1, total bilirubin, AST, ALT normal. Troponin T 0.017, 0.080, and 0.174. Triglyceride 172, total cholesterol 152, LDL 58, HDL 59. Procalcitonin 5.52. Hemoglobin 9.4, yesterday 13.6. Yesterday WBC count was 25, today it is 8.0, platelets yesterday 323, today 185. This may be a lab error as it does not match from yesterday's lab values. Digoxin level 0.3. ASSESSMENT AND PLAN: Acute hypoxic as well as hypercapnic respiratory failure which now appears predominantly due to pulmonary pathology, possible pneumonia, based on above-mentioned diagnostic factor. On 2D echo, overall LV function is preserved. No significant regional wall motion abnormalities. Diastolic function could not be properly assessed. Abnormal troponin is likely due to possible sepsis. The patient has history of pulmonary embolism in 2013 and pulmonary hypertension. During admission her INR was therapeutic. She has persistent sinus bradycardia which is kind of puzzling; however she has been on amiodarone for a long time and she was on good doses of beta bhargavi as well as digoxin. All of them are discontinued. However amiodarone will remain in the system for a couple of weeks. However at present she has perfusing rhythm. Hence, at this point of time will continue to observe. Her hyperkalemia has resolved. Hypoxia has improved. Acidosis has improved. Her recent TSH was 0.439. Management of her underlying pulmonary problem and medical problem I will leave up to ICU and hospital team. From Cardiology perspective, at this point of time will continue to observe. If she develops symptomatic bradycardia, will recommend trial of IV atropine or if blood pressure drops consider IV Levophed. TIME: Total time spent today for this critical care followup is about 50 minutes.
--- NOTE | 2017-05-22 18:34 | PCM.PNMED ---
Subjective Date of Service May 22, 2017 Subjective Patient currently remains intubated Exam Vital Signs Vital Sign - Last Date Time Temp Pulse Resp B/P Pulse Ox O2 Delivery O2 Flow Rate FiO2 05/22/17 15:55 44 126/43 97 25 05/22/17 08:00 Ventilator 05/22/17 08:00 36.8 19 05/21/17 06:25 9 Intake and Output 05/21/17 05/21/17 05/22/17 Cumulative From/Thru 15:00 23:00 07:00 05/21/17 08:30 - 05/22/17 06:12 Intake Total 3522 ml 1924 ml 5446 ml Output Total 2850 ml 1250 ml 4100 ml Balance 672 ml 674 ml 1346 ml Intake IV Total 3522 ml 1924 ml 5446 ml Output Urine Total 2850 ml 1250 ml 4100 ml # Bowel Movements 0 0 0 Exam Constitutional: 70-year-old female remains intubated in no acute distress Head: Normocephalic atraumatic Chest reveals scattered rhonchi Cor: Bradycardic rate and regular rhythm, S1-S2 without murmur Abdomen: Soft nontender bowel sounds present Extremities: 1+ bilateral pedal edema Neuro: Patient is sedated but does move all extremities to painful stimuli Lab and Diagnostics Laboratory Tests 72 Hours Test 05/21/17 05:15 05/21/17 06:55 05/21/17 07:08 05/21/17 07:37 White Blood Count 25.1th/mm3 (3.8-10.1) Red Blood Count 4.63mil/mm3 (3.90-5.20) Hemoglobin 13.6g/dL (12.0-15.6) Hematocrit 43.9% (35.0-46.0) Mean Corpuscular Volume 94.8fL (81-100) Mean Corpuscular Hemoglobin 29.4pg (27.0-35.0) Mean Corpuscular Hemoglobin Concent 31.0% (32.0-37.0) Red Cell Distribution Width 13.8% (12.3-15.4) Platelet Count 323bil/L (150-400) Neutrophils (%) (Auto) 73.5% (40-74) Lymphocytes (%) (Auto) 17.6% (14-46) Monocytes (%) (Auto) 7.3% (4-12) Eosinophils (%) (Auto) 1.0% (0-5) Basophils (%) (Auto) 0.2% (0-3) Prothrombin Time 24.3sec (8.1-12.5) Prothromb Time International Ratio 2.23ratio Sodium Level 142mEq/L (134-144) Potassium Level 5.7mEq/L (3.5-5.2) 5.7mEq/L (3.5-5.2) Chloride Level 98mEq/L (97-108) Carbon Dioxide Level 25mmol/L (18-29) Blood Urea Nitrogen 56mg/dL (8-27) Creatinine 2.48mg/dL (0.57-1.00) Estimat Glomerular Filtration Rate 27mL/min (>59) Glucose Level 189mg/dL (60-99) Hemoglobin A1c 6.2% (4.8-5.6) Lactic Acid Level 2.6mmol/L (0.4-2.0) Calcium Level 9.2mg/dL (8.5-10.1) Magnesium Level 2.6mg/dL (1.6-2.6) Total Bilirubin 0.3mg/dL (0.0-1.2) Aspartate Amino Transf (AST/SGOT) 18U/L (0-50) Alanine Aminotransferase (ALT/SGPT) 19U/L (0-32) Alkaline Phosphatase 76U/L (25-165) Troponin T 0.017ug/L (0.0-0.011) 0.080ug/L (0.0-0.011) Pro-B-Type Natriuretic Peptide 602.6pg/mL (0-301) Total Protein 7.6g/dL (6.4-8.4) Albumin 4.0g/dL (3.4-5.0) Procalcitonin 0.22ng/mL (0.00-0.08) Digoxin Level 0.3nG/mL (0.9-2.0) Urine Legionella pneumophilia Ag Negative (Negative) Urine Color Yellow (YELLOW) Urine Appearance Clear (CLEAR,HAZY) Urine pH 6.0 (5.0-8.0) Urine Specific [place] 1.013 (1.003-1.035) Urine Protein Negativemg/dL (NEG,TRACE) Urine Glucose (UA) Negativemg/dL (NEGATIVE) Urine Ketones Negativemg/dL (NEGATIVE) Urine Occult Blood Trace (NEGATIVE) Urine Nitrite Negative (NEGATIVE) Urine Bilirubin Negative (NEGATIVE) Urine Urobilinogen Normalmg/dL (NORMAL) Urine Leukocyte Esterase Negative (NEGATIVE) Urine RBC 0-2/hpf (0-2) Urine WBC 0-5/hpf (0-5) Urine Epithelial Cells Few/hpf (NONE-MOD) Urine Crystals None seen (NONE SEEN) Urine Bacteria Few/hpf (NONE-FEW) Urine Hyaline Casts None/lpf (NONE) Urine Granular Casts None seen (NONE SEEN) Urine Waxy Casts None seen (NONE SEEN) Urine Red Blood Cell Casts None seen (NONE SEEN) Urine White Blood Cell Casts None seen (NONE SEEN) Urine Mucus None seen (None Seen) Urine Trichomonas None seen (NONE SEEN) Urine Yeast None (NONE SEEN) Urine Culture Reflexed Not indicated Vitamin B12 Level 256pg/mL (211-946) Folate 10.1ng/mL (>3.0) Test 05/21/17 08:35 05/21/17 10:00 05/21/17 11:58 05/22/17 04:05 Prothrombin Time 25.4sec (8.1-12.5) Prothromb Time International Ratio 2.33ratio Activated Partial Thromboplast Time 35.6sec (22.8-33.0) Lactic Acid Level 2.3mmol/L (0.4-2.0) 2.2mmol/L (0.4-2.0) Uric Acid 11.8mg/dL (2.6-7.2) Magnesium Level 2.4mg/dL (1.6-2.6) Prealbumin 17mg/dL (20-40) Triglycerides Level 110mg/dL (0-149) 172mg/dL (0-149) Thyroid Stimulating Hormone (TSH) 0.439uIU/mL (0.450-4.500) Body Fluid Source Bronchial washing Body Fluid Color (Clear) Body Fluid Appearance Hazy Body Fluid WBC 55/mm3 Body Fluid RBC 5175/mm3 Body Fluid Polynuclear WBCs 40% Body Fluid Lymphocytes 10% Body Fluid Monocytes 50% Body Fluid Eosinophils 0% Body Fluid Basophils 0% Cryptococcus Antigen Negative (Negative) Sodium Level 140mEq/L (134-144) Potassium Level 4.1mEq/L (3.5-5.2) Chloride Level 101mEq/L (97-108) Carbon Dioxide Level 23mmol/L (18-29) Blood Urea Nitrogen 46mg/dL (8-27) Creatinine 1.93mg/dL (0.57-1.00) Estimat Glomerular Filtration Rate 37mL/min (>59) Glucose Level 218mg/dL (60-99) Calcium Level 8.4mg/dL (8.5-10.1) Phosphorus Level 2.5mg/dL (2.5-4.9) Troponin T 0.174ug/L (0.0-0.011) Pro-B-Type Natriuretic Peptide 3883pg/mL (0-301) Albumin 3.0g/dL (3.4-5.0) Cholesterol Level 152mg/dL (100-199) LDL Cholesterol, Calculated 58.600mg/dL (0-99) VLDL Cholesterol 34.400mg/dL HDL Cholesterol 59mg/dL (>39) Cholesterol/HDL Ratio 2.58 (0.0-4.4) Procalcitonin 5.52ng/mL (0.00-0.08) Digoxin Level 0.3nG/mL (0.9-2.0) Test 05/22/17 08:33 White Blood Count 8.0th/mm3 (3.8-10.1) Red Blood Count 3.30mil/mm3 (3.90-5.20) Hemoglobin 9.4g/dL (12.0-15.6) Hematocrit 30.2% (35.0-46.0) Mean Corpuscular Volume 91.5fL (81-100) Mean Corpuscular Hemoglobin 28.5pg (27.0-35.0) Mean Corpuscular Hemoglobin Concent 31.1% (32.0-37.0) Red Cell Distribution Width 13.6% (12.3-15.4) Platelet Count 185bil/L (150-400) Neutrophils (%) (Auto) 83.5% (40-74) Lymphocytes (%) (Auto) 8.8% (14-46) Monocytes (%) (Auto) 7.3% (4-12) Eosinophils (%) (Auto) 0.1% (0-5) Basophils (%) (Auto) 0% (0-3) Prothrombin Time 22.8sec (8.1-12.5) Prothromb Time International Ratio 2.10ratio Sodium Level 144mEq/L (134-144) Potassium Level 4.0mEq/L (3.5-5.2) Chloride Level 105mEq/L (97-108) Carbon Dioxide Level 26mmol/L (18-29) Blood Urea Nitrogen 45mg/dL (8-27) Creatinine 1.75mg/dL (0.57-1.00) Estimat Glomerular Filtration Rate 41mL/min (>59) Glucose Level 208mg/dL (60-99) Calcium Level 8.3mg/dL (8.5-10.1) Phosphorus Level 3.1mg/dL (2.5-4.9) Magnesium Level 2.1mg/dL (1.6-2.6) Total Bilirubin 0.4mg/dL (0.0-1.2) Aspartate Amino Transf (AST/SGOT) 15U/L (0-50) Alanine Aminotransferase (ALT/SGPT) 12U/L (0-32) Alkaline Phosphatase 47U/L (25-165) Total Protein 5.3g/dL (6.4-8.4) Albumin 2.8g/dL (3.4-5.0) Result Diagram: 05/22/1783205/22/17 0833 X-Rays, CTs and MRIs PROCEDURE: X-RAY CHEST ONE VIEW, PORTABLE ([id number]) INDICATIONS: Resp distress TECHNIQUE: One view of the chest was acquired. COMPARISON: [facility], , CHEST 2VW, 01/09/2015, 12:06. [facility], , XR CHEST 2VW, 07/13/2016, 14:04. [facility], , CHEST 1VW (PORTABLE), 07/10/2014, 17:01. FINDINGS: Surgical changes and devices: None. Lungs and pleura: There are bilateral interstitial and airspace infiltrates consistent with pneumonia or pulmonary edema. No pleural effusions or pneumothorax. Mediastinum: Mediastinal contours appear normal. Heart size is normal. Aortic calcification consistent with atherosclerosis. Bones and chest wall: No suspicious bony lesions. Overlying soft tissues appear unremarkable. IMPRESSION: Bilateral pneumonia or pulmonary edema. Dictated by: Luma Paiz M.D. on 05/21/2017 at 8:46 Approved by: Luma Paiz M.D. on 05/21/2017 at 8:48 12-lead ECG See history of present illness Cardiac Echo Impressions Name: KIRSTY WHITLEY KStudy Date: 05/21/2017 Height: 63 in Hospital Exam Location: [facility] Weight: 300 lb Gender: Female BSA: 2.3 m2 : 1945 Age: 72 yrs BP: 97/50 mmHg Reason For Study: Congestive Heart Failure Ordering Physician: HOSPITALIST [facility] Performed By: Fang Feliciano Referring Physician: Lashon Calvert Interpretation Summary Patient was intubated and supine for the exam. Echo complete was modified to echo limited due to patient status. The left ventricle is normal in size. Left ventricular wall thickness is mildly increased. The ejection fraction is estimated to be 60-65%. The right ventricle is mildly dilated. Right ventricular systolic function is mildly reduced. The aortic valve is not well visualized. However do not appear to be critically stenosed. The aortic valve is moderately calcified. The peak aortic velocity is 2.9 m/sec. The aortic valve mean gradient is 19 mmHg. The peak aortic velocity on the previous exam was 3.2 m/sec. There is mild tricuspid regurgitation. Right ventricular systolic pressure is estimated to be 27 mmHg plus the clinically estimated CVP which cannot be estimated on this exam. No obvious valvular vegetation seen. Assessment & Plan Assessment & Plan Patient is a 72-year-old female with a history of rheumatoid arthritis on Orencia and prednisone, heart failure with reserved ejection fraction, atrial fibrillation on warfarin, diabetes, and hypertension who presented in acute respiratory distress. Acute hypoxic and hypercapnic respiratory failure. Active., Improving - Likely secondary to pneumonia and sepsis with JULIUS and obesity contributing. - Continue mechanical ventilation - Continue sedation with propofol and fentanyl Acute sepsis. - Secondary to community-acquired pneumonia. Patient presents hypotensive with elevated lactic acid, leukocytosis, and fever. - Cover with Levaquin and Zosyn - Levophed gtt as needed. - Trend lactic acid q2h until normal - Blood cultures, BAL and sputum cultures pending - Dr. Cheatham of infectious disease is managing antibiotics. -Since patient is having bradycardia we will go ahead and DC Levaquin Community-acquired pneumonia in the context of immunosuppression - Patient reported URI symptoms over the last week. Pro-calcitonin 0.22. Given her immunosuppressed state while on abatacept and prednisone, must consider less common organisms. - Continue Zosyn and will DC Levaquin due to bradycardia see if this improves - Bronchoscopy with BAL was performed 05/21. Sent lavage fluid for cultures and cytology. - Viral PCR positive for rhinovirus. Acute renal failure. Active. - Likely secondary to septic shock. Patient is likely volume depleted. We will replete fluids. - Fluids as needed. - Avoid nephrotoxic agents - Monitor BMP Rheumatoid arthritis, chronic. - Patient is currently on abatacept and prednisone. Watch Adjuster Dr. Garibay. - Continue IV hydrocortisone to avoid shock from adrenal insufficiency. - Hold abatacept. Aortic stenosis - Chest x-ray shows diffuse pulmonary infiltrates. Pulmonary edema versus interstitial lung disease is the main differential at this time. - Echocardiogram reviewed. EF 60% while on pressors. - Dr. Castro of Cardiology has been consulted. We appreciate his input. Elevated troponin, acute. - Patient presented with elevated troponins. Nonspecific ST changes on EKG. Likely more a demand ischemia picture than an ACS picture. -Further recommendations per cardiology. Bradyarrhythmia - Despite a map of 40 on admission patient's heart rate was only 50. She takes to digoxin as well as amiodarone. Propofol may be contributing to continued bradycardia. No evidence of lethal EKG changes. -We will DC Levaquin as may be contributing to bradycardia Morbid obesity with likely obstructive sleep apnea -CPAP/BiPAP once extubated. VTE Prophylaxis: Theraputic Anticoag with Warfarin Resuscitation Status: CPR: Attempt Resuscitation Time spent 25 minutes Harleen Giles MD May 22, 2017 18:34
--- NOTE | 2017-05-22 19:13 | NUR ---
P: Resp, Hemodynamics, Neuro, Social I,E: Pt remains on the vent, pt placed on VC with low RR today and she did well for a while, but then got tired and rate was increased again. Scant sputum suctioned. Sats high 90's on 25%. BP has been stable, although at this time it is elevated up to 176/75. UOP was 650cc. CVP this am was 13, CI was 2.4 at 1600hrs. Propofol and fentanyl for sedation and pain, these were decreased approx one hour ago and this may be why BP is now elevated. Pt wakes up at times and recognizes family members. Pt has supportive family and her daughter was in the room most of the day.
[2017-05-23] MEDS: Hydrocortisone 50 mg/mL 2 mL Inj IVPUSH SCH (00:02)
[2017-05-23] MEDS: Sodium Chloride LOK Flush 10 mL Syringe IVFLUSH SCH (00:03)
[2017-05-23] MEDS: Piperacillin-Tazo 3.375 Gm Inj 3.375 GM in Dextrose 5% Minibag Plus 50 ML IV SCH (00:03)
[2017-05-23] MEDS: Chlorhexidine 0.12% 15 mL Oral Solution MT SCH (00:03)
[2017-05-23] MEDS ORDERED: levoFLOXacin Inj 750 MG in IV Premix 1 EACH IV SCH (08:30)
--- NOTE | 2017-05-23 16:52 | DRSVH ---
PROCEDURE: X-RAY CHEST ONE VIEW, PORTABLE ([id number]) INDICATIONS: CHECK TIP PLACEMENT OF CVL TECHNIQUE: One view of the chest was acquired. COMPARISON: [facility], CR, XR CHEST 1VW (PORTABLE), 05/21/2017, 10:06. FINDINGS: Surgical changes and devices: ETT tip projected 3.6 cm above the curt. Right IJ CVL has been place d tip projected over the lower SVC. Lungs and pleura: No pneumothorax. Bibasilar airspace opacities are present and trace pleural effus ions. Mediastinum: Mediastinal contours appear normal. Heart size is enlarged. Bones and chest wall: No suspicious bony lesions. Overlying soft tissues appear unremarkable. IMPRESSION: 1. Placement of right IJ CVL tip projected over the lower SVC. 2. Bibasilar atelectasis versus aspiration or pneumonia. Correlate clinically. Dictated by: Lee BARROSO Interpreted: Joana Jerry MD on 05/21/2017 at 11:58 Approved by: Joana Jerry M.D. on 05/23/2017 at 16:50
--- NOTE | 2017-05-27 10:53 | PATH ---
SURGICAL PATHOLOGY Attending Physician:Harleen Giles MD CASE STATUS: Signed Out PATIENT NAME: Ofelia Beach PID: [id number] : 1945 DATE COLLECTED:05/21/2017 00:00 SPECIMEN: Lung Washings CLINICAL HISTORY: Lung Washings ICD-10 code not given FINAL DIAGNOSIS: Lung Washings for Cytology (ThinPrep and Cell Block): Negative for malignant cells. Alveolar macrophages are present. ICD10: R91.8 GROSS DESCRIPTION: Received fresh on 05/24/2017 is approximately 30 cc of cloudy pink fluid. Prepared are one cell block and one ThinPrep slide. Vo ICD-9 CODES: CPT CODES: 1: 88476, 06850 Electronically Signed Out Philip Justice MD, PhD [facility] Pathology [facility] [address], [place] [address] Technical component performed at [facility], [facility] [address], [address]
== END 2017-05-23 01:19 | disposition admitted as inpatient to this hospital (09) | DRG 208 ==
LOC: EDBD 05:41 → SED 05:41 → EDBD 07:20 → CCU 07:20
PROVIDERS: ADMIT Specialist; ATTEND Specialist
PROC: 5A1935Z Respiratory Ventilation, Less than 24 Consecutive Hours (ICD-10-PCS; principal; 2017-05-21 09:30)
DX: J96.02 Acute respiratory failure with hypercapnia (principal); Z68.43 Body mass index [BMI] 50.0-59.9, adult; E87.2 Acidosis; N17.9 Acute kidney failure, unspecified; I50.9 Heart failure, unspecified; J96.01 Acute respiratory failure with hypoxia; E66.01 Morbid (severe) obesity due to excess calories